=== PATIENT | male | born 1965 | race Caucasian/White ===

== ENCOUNTER 2016-08-29 20:04 | Inpatient (IN) | payer MEDICAID, OTHER ==
[2016-08-29 20:05] VITALS: BMI 25.8
--- NOTE | 2016-08-29 20:33 | ED PDOC ---
Arrival/HPI - General Chief Complaint: GI Problem Time Seen by Provider: 08/29/16 20:06 Historian: Patient - History of Present Illness Narrative History of Present Illness (Text): 08/29/16 20:32 Lenard Barakat is a 51 year old male smoker, whose past medical history includes COPD, who presents to the ED complaining of hematemesis. Patient states he has been vomiting dark red blood tonight with associated left sided abdominal pain and dark stools. Patient states he drinks alcohol regularly. Patient denies any chest pain, shortness of breath, diarrhea, urinary symptoms, back pain, neck pain, headache, dizziness, or any other complaints. Symptom Onset: Gradual Symptom Course: Unchanged Activities at Onset: Rest, Light Context: Home Past Medical History - Provider Review Nursing Documentation Reviewed: Yes - Infectious Disease Hx of Infectious Diseases: None - Cardiac Hx Cardiac Disorders: No - Pulmonary Hx Pneumonia: Yes - Neurological Hx Neurological Disorder: No - HEENT Hx HEENT Disorder: No - Renal Hx Renal Disorder: No - Endocrine/Metabolic Hx Endocrine Disorders: No - Hematological/Oncological Hx Blood Disorders: No - Integumentary Hx Dermatological Disorder: No - Musculoskeletal/Rheumatological Hx Gout: Yes - Gastrointestinal Hx Gastrointestinal Disorders: No - Genitourinary/Gynecological Hx Genitourinary Disorders: No - Psychiatric Hx Psychophysiologic Disorder: No Hx Substance Use: No - Surgical History Other/Comment: LUNG BX - Anesthesia Hx Anesthesia: No Family/Social History - Physician Review Nursing Documentation Reviewed: Yes Family/Social History: No Known Family HX Smoking Status: Light Smoker < 10 Cigarettes Daily Hx Alcohol Use: Yes Frequency of alcohol use: Daily Hx Substance Use: No Allergies/Home Meds Allergies/Adverse Reactions: Allergies No Known Allergies Allergy (Verified 08/29/16 20:21) Home Medications: Home Meds Medication Instructions Recorded Confirmed No Known Home Med 08/29/16 08/29/16 Review of Systems - Physician Review All systems were reviewed & negative as marked: Yes - Review of Systems Constitutional: Normal. absent: Fevers Eyes: Normal ENT: Normal Respiratory: Normal. absent: SOB, Cough Cardiovascular: Normal. absent: Chest Pain Gastrointestinal: Abdominal Pain, Hematemesis, Other (+dark stools) Genitourinary Male: Normal. absent: Dysuria, Frequency, Hematuria Musculoskeletal: Normal. absent: Back Pain, Neck Pain Skin: Normal. absent: Rash Neurological: Normal. absent: Headache, Dizziness Endocrine: Normal Hemo/Lymphatic: Normal Psychiatric: Normal Physical Exam Vital Signs Reviewed: Yes Vital Signs Temp Pulse Resp BP Pulse Ox 08/30/16 00:16 75 18 102/64 97 08/29/16 22:00 80 18 93/60 L 95 08/29/16 20:32 98.8 F 95 H 17 119/65 98 Temperature: Afebrile Blood Pressure: Normal Pulse: Regular Respiratory Rate: Normal Appearance: Positive for: Well-Appearing, Non-Toxic, Comfortable Pain Distress: None Mental Status: Positive for: Alert and Oriented X 3 - Systems Exam Head: Present: Atraumatic, Normocephalic Pupils: Present: PERRL Extroacular Muscles: Present: EOMI Conjunctiva: Present: Normal Mouth: Present: Moist Mucous Membranes Neck: Present: Normal Range of Motion Respiratory/Chest: Present: Clear to Auscultation, Good Air Exchange. No: Respiratory Distress, Accessory Muscle Use Cardiovascular: Present: Regular Rate and Rhythm, Normal S1, S2. No: Murmurs Abdomen: Present: Tenderness (LUQ tenderness), Normal Bowel Sounds. No: Distention, Peritoneal Signs Upper Extremity: Present: Normal Inspection. No: Cyanosis, Edema Lower Extremity: Present: Normal Inspection. No: Edema Neurological: Present: GCS=15, CN II-XII Intact, Speech Normal Skin: Present: Warm, Dry, Normal Color. No: Rashes Psychiatric: Present: Alert, Oriented x 3, Normal Insight, Normal Concentration Medical Decision Making ED Course and Treatment: 08/29/16 20:32 Impression: 51 year old male complaining of dark red hematemesis, dark stools, and left- sided abdominal pain tonight. Differential Diagnosis include but are not limited to: GI bleed Plan: -- EKG -- Chest X-ray -- Labs, cardiac enzymes, lipase, amylase, blood type and screen -- Urinalysis -- IV fluids -- Zofran -- Pepcid -- Protonix -- Reassess and disposition Prior Visits: Notes and results from previous visits were reviewed. On 07/03/2016, pt was seen in the ED for dry cough and chest discomfort. Pt was admitted to the hospital for further evaluation. Progress Notes: 08/29/16 21:07 Reviewed EKG, NSR at [address]-segment elevations or depressions, no T-wave inversions, normal intervals. 08/29/16 21:23 Reviewed radiology, Chest X-ray shows no active disease. 08/29/16 23:44 Case discussed with durable medical equipment repairer supervisor front, who is aware and agrees with plan. House doctor notified. 08/29/16 23:[address] Matos, who is aware and agrees with plan. Accepts pt in to hospitalist service. Pt will go to [facility] observation for GI hemorrhage. Pt is no acute distress. Discussed results and hospital observation plan with pt , who is aware and verbalizes understanding. 08/30/16 05:05 - Lab Interpretations Narrative Lab Interpretation (Text): 08/29/16 20:32 Lab Results: 08/29/16 21:06 08/29/16 21:06 Lab Results 08/29/16 23:25: Blood Type Confirm O POSITIVE 08/29/16 21:28: Urine Color Straw, Urine Appearance Clear, Urine pH 6.0, Ur Specific [place] <= 1.005, Urine Protein Negative, Urine Glucose (UA) Negative, Urine Ketones Negative, Urine Blood Negative, Urine Nitrate Negative, Urine Bilirubin Negative, Urine Urobilinogen 0.2, Ur Leukocyte Esterase Negative 08/29/16 21:06: WBC 5.5 D, RBC 3.88, Hgb 12.8 L, Hct 35.8 L, MCV 92.3, MCH 33.0 , MCHC 35.8, RDW 16.9 H, Plt Count 242, MPV 8.9, Gran % 35.0 L, Lymph % (Auto) 54.9 H, [place] % (Auto) 6.9 H, Eos % (Auto) 2.7, Baso % (Auto) 0.5, Gran # 1.94, Lymph # 3.0, [place] # 0.4, Eos # 0.2, Baso # 0.03, PT 11.1, INR 1.03, APTT 29.5, Sodium 142, Potassium 3.7, Chloride 103, Carbon Dioxide 24, Anion Gap 19, BUN 14 , Creatinine 0.8, Est GFR ( Amer) > 60, Est GFR (Non-Af Amer) > 60, Random Glucose 98, Calcium 9.1, Total Bilirubin 0.5, AST 32, ALT 18, Alkaline Phosphatase 69, Lactate Dehydrogenase 400, Total Creatine Kinase 184, Troponin I 0.01, Total Protein 7.8, Albumin 4.4, Globulin 3.5, Albumin/Globulin Ratio 1.3 , Amylase 88, Lipase 238, Blood Type O POSITIVE, Antibody Screen Negative, BBK History Checked No verified bt I have reviewed the lab results: Yes - RAD Interpretation Narrative RAD Interpretations (Text): Chest X-ray shows no active disease. Radiology Orders: 08/29/16 20:44 CHEST PORTABLE [RAD] Stat [place] Operator: ED Physician - EKG Interpretation EKG Interpretation (Text): EKG: Ordered, reviewed, and independently interpreted the EKG. Rate : 92 BPM Rhythm : NSR Interpretation : No ST-segment elevations or depressions, no T-wave inversions, normal intervals. Comparison : No acute change from previous EKG on 07/03/2016. Interpreted by ED Physician: Yes Type: 12 lead EKG - Medication Orders Current Medication Orders: Albuterol/Ipratropium (Duoneb 3 Mg/0.5 Mg (3 Ml) Ud) 3 ml IH Q6 PRN PRN Reason: Shortness of Breath Guaifenesin (Robitussin) 100 mg PO Q4H PRN PRN Reason: Cough Sodium Chloride (Sodium Chloride 0.9%) 1,000 mls @ 100 mls/hr IV .Q10H DEV Ondansetron HCl (Zofran Inj) 4 mg IVP Q4 PRN PRN Reason: Nausea/Vomiting Pantoprazole Sodium (Protonix Inj) 40 mg IVP BID DEV Discontinued Medications Famotidine (Pepcid) 20 mg IVP STAT STA Stop: 08/29/16 20:45 Last Admin: 08/29/16 21:05 Dose: 20 MG IVP Administration Document 08/29/16 21:05 (Rec: 08/29/16 21:10 [id number] Charges for Administration # of IVP Administrations 1 Sodium Chloride (Sodium Chloride 0.9%) 500 mls @ 1,000 mls/hr IV .Q30M STA Stop: 08/29/16 21:13 Last Admin: 08/29/16 21:05 Dose: 1,000 MLS/HR eMAR Start Stop Document 08/29/16 21:05 (Rec: 08/29/16 21:10 [id number] Intravenous Solution Start Date 08/29/16 Start Time 21:05 End Date 08/29/16 Ondansetron HCl (Zofran Inj) 4 mg IVP STAT STA Stop: 08/29/16 20:45 Last Admin: 08/29/16 21:05 Dose: 4 MG IVP Administration Document 08/29/16 21:05 SB (Rec: 08/29/16 21:10 SB [id number]) Charges for Administration # of IVP Administrations 1 Pantoprazole Sodium (Protonix Inj) 40 mg IVP ONCE STA Stop: 08/29/16 20:48 Last Admin: 08/29/16 21:05 Dose: 40 MG IVP Administration Document 08/29/16 21:05 SB (Rec: 08/29/16 21:11 SB [id number]) Charges for Administration # of IVP Administrations 1 - Scribe Statement The provider has reviewed the documentation as recorded by the Jonnie Kelley Provider Attestation: All medical record entries made by the Philippeibgary were at my direction and personally dictated by me. I have reviewed the chart and agree that the record accurately reflects my personal performance of the history, physical exam, medical decision making, and the department course for this patient. I have also personally directed, reviewed, and agree with the discharge instructions and disposition. Disposition/Present on Arrival - Present on Arrival Any Indicators Present on Arrival: No History of DVT/PE: No History of Uncontrolled Diabetes: No Urinary Catheter: No History of Decub. Ulcer: No History Surgical Site Infection Following: None - Disposition Have Diagnosis and Disposition been Completed?: Yes Diagnosis: Gastrointestinal bleeding Disposition: HOSPITALIZED Disposition Time: 23:45 Condition: FAIR
[2016-08-29] MEDS ORDERED: Sodium Chloride 0.9% 500 ML IV STA (20:44)
[2016-08-29 21:15] LABS: ADD MANUAL DIFF? NO
[2016-08-29 21:24] LABS: BASO # 0.03 K/mm3 (0.0-2.0); BASO % 0.5 % (0.0-3.0); EOS # 0.2 (0.0-0.7); EOS % 2.7 % (1.5-5.0); GRAN # 1.94 (1.4-6.5); HEMATOCRIT 35.8 % (42.0-52.0); LYMPH % 54.9 % (22.0-35.0); MEAN CELL VOLUME 92.3 fL (80.0-105.0); MEAN CORPUSCULAR HGB CONC 35.8 g/dl (31.0-37.0); MEAN PLATELET VOLUME 8.9 fl (7.0-11.0); MONO # 0.4 (0.1-0.6); MONO % 6.9 % (1.0-6.0); PLATELET COUNT 242 10^3/uL (120.0-450.0); RED CELL DISTRIBUTION WIDTH 16.9 % (11.5-14.5); WHITE BLOOD COUNT 5.5 10^3/ul (4.5-11.0)
[2016-08-29 21:30] LABS: ALB/GLOB RATIO 1.3 (1.1-1.8); ALKALINE PHOSPHATASE 69 U/L (38-133); ALT/SGPT 18 U/L (7-56); AMYLASE 88 U/L (35-125); AST/SGOT 32 U/L (15-59); BILIRUBIN,TOTAL 0.5 mg/dL (0.2-1.3); BLOOD UREA NITROGEN 14 mg/dL (7-21); CALCIUM 9.1 mg/dL (8.4-10.5); CARBON DIOXIDE 24 mmol/L (21-33); CHLORIDE 103 mmol/L (98-107); GFR AFRICAN-AMERICAN > 60; GLUCOSE,RANDOM 98 mg/dL (70-110); INR 1.03 (0.93-1.08); LIPASE 238 U/L (23-300); PARTIAL THROMBOPLASTIN TIME 29.5 Seconds (23.7-30.8); POTASSIUM 3.7 mmol/L (3.6-5.0); SODIUM 142 mmol/L (132-148); TOTAL PROTEIN 7.8 g/dL (5.8-8.3)
[2016-08-29 22:05] LABS: URINE BILIRUBIN NEGATIVE (NEGATIVE); URINE BLOOD NEGATIVE (NEGATIVE); URINE GLUCOSE (UA) NEGATIVE (NEGATIVE); URINE KETONE NEGATIVE (NEGATIVE); URINE LEUKOCYTE ESTERASE NEGATIVE Leu/uL (NEGATIVE); URINE PROTEIN NEGATIVE mg/dL (<30 mg/dL); URINE UROBILINOGEN 0.2 E.U./dL (<1 E.U./dL)
[2016-08-29 22:08] LABS: URINE APPEARANCE CLEAR (CLEAR); URINE COLOR STRAW (YELLOW)
[2016-08-29 22:47] LABS: TROPONIN I 0.01 ng/mL
[2016-08-30] MEDS ORDERED: guaiFENesin 100 mg/5 ml Syrup UD PO PRN (00:29)
[2016-08-30] MEDS ORDERED: Albuterol-Ipratrop 3 mg / 0.5 (3 ml) UD IH PRN (00:29)
--- NOTE | 2016-08-30 00:38 | CP.PCM.HP ---
<DebraJose samuelsolas - Last Filed: 08/30/16 02:23> History of Present Illness - History of Present Illness History of Present Illness: This is a 51 yo male with past medical hx of pneumonia and questionable cavitary lesion on chest ct presenting with hematemesis. Pt is homeless and is very poor historian. Pt was at [facility] earlier in the evening, around 9 PM. Pt had 1 episode of blood vomit which he says was dark red in color. He could not quantify how much he actually vomited. About an hour later, he had a second episode. He says this has never happened before. He approached police officers at the [facility] who called him an ambulance. He admits to a current "woozy" feeling otherwise has no complaints. No recent travel, no sick contacts. Denies fevers, chills, diarrhea. He notes he had 1 dark stool day prior. He denies drinking throughout the day, only says he had 1 cup of beer. Denies cough, chest pain, sob. Denies palpitations. Denies any drug use. PMH: Pneumonia, questionable cavitary lesion on chest ct PSH: CT guided lung biopsy Allergies: NKDA FH: Denies Home meds: none Social hx: Smokes 4 cigs/day. Drinks rarely. Denies drug use. Homeless since October, sleeps where he can. Has not been in a long term. Present on Admission - Present on Admission Any Indicators Present on Admission: No History of DVT/PE: No History of Uncontrolled Diabetes: No Urinary Catheter: No Decubitus Ulcer Present: No Review of Systems - Review of Systems All systems: reviewed and no additional remarkable complaints except Review of Systems: Negative except as stated in HPI. Past Patient History - Infectious Disease Hx of Infectious Diseases: None - Tetanus Immunizations Tetanus Immunization: Unknown - Past Medical History & Family History Past Medical History?: Yes Past Family History: Reviewed and not pertinent - Past Social History Smoking Status: Light Smoker < 10 Cigarettes Daily Chewing Tobacco Use: No Cigar Use: No Alcohol: Occasional Drugs: Denies Home Situation {Lives}: Homeless Domestic Violence: Negative - CARDIAC Hx Cardiac Disorders: No - PULMONARY Hx Pneumonia: Yes - NEUROLOGICAL Hx Neurological Disorder: No - HEENT Hx HEENT Problems: No - RENAL Hx Chronic Kidney Disease: No - ENDOCRINE/METABOLIC Hx Endocrine Disorders: No - HEMATOLOGICAL/ONCOLOGICAL Hx Blood Disorders: No - INTEGUMENTARY Hx Dermatological Problems: No - MUSCULOSKELETAL/RHEUMATOLOGICAL Hx Gout: Yes - GASTROINTESTINAL Hx Gastrointestinal Disorders: No - GENITOURINARY/GYNECOLOGICAL Hx Genitourinary Disorders: No - PSYCHIATRIC Hx Psychophysiologic Disorder: No Hx Substance Use: No - SURGICAL HISTORY Other/Comment: LUNG BX - ANESTHESIA Hx Anesthesia: No Meds Allergies/Adverse Reactions: Allergies Allergy/AdvReac Type Severity Reaction Status Date / Time No Known Allergies Allergy Verified 08/29/16 20:21 Physical Exam - Constitutional Appears: Non-toxic, No Acute Distress, Unkempt - Head Exam Head Exam: ATRAUMATIC, NORMAL INSPECTION, NORMOCEPHALIC - Eye Exam Eye Exam: EOMI - ENT Exam ENT Exam: Mucous Membranes Moist - Neck Exam Neck exam: Positive for: Normal Inspection - Respiratory Exam Respiratory Exam: Decreased Breath Sounds. absent: Accessory Muscle Use, Respiratory Distress - Cardiovascular Exam Cardiovascular Exam: REGULAR RHYTHM, +S1, +S2 - GI/Abdominal Exam GI & Abdominal Exam: Normal Bowel Sounds, Soft. absent: Tenderness - Extremities Exam Extremities exam: Negative for: tenderness - Back Exam Back exam: NORMAL INSPECTION - Neurological Exam Neurological exam: Alert, Oriented x3 - Psychiatric Exam Psychiatric exam: Normal Affect, Normal Mood - Skin Skin Exam: Dry, Intact, Normal Color, Warm Results - Vital Signs Recent Vital Signs: Last Vital Signs Temp 98.8 F 08/29/16 20:32 Pulse 75 08/30/16 00:16 Resp 18 08/30/16 00:16 BP 102/64 08/30/16 00:16 Pulse Ox 97 08/30/16 00:16 - Labs Result Diagrams: 08/29/16 21:06 08/29/16 21:06 Labs: Laboratory Results - last 24 hr 08/29/16 08/29/16 21:06 21:28 WBC 5.5 D RBC 3.88 Hgb 12.8 L Hct 35.8 L MCV 92.3 MCH 33.0 MCHC 35.8 RDW 16.9 H Plt Count 242 MPV 8.9 Gran % 35.0 L Lymph % (Auto) 54.9 H [place] % (Auto) 6.9 H Eos % (Auto) 2.7 Baso % (Auto) 0.5 Gran # 1.94 Lymph # 3.0 [place] # 0.4 Eos # 0.2 Baso # 0.03 PT 11.1 INR 1.03 APTT 29.5 Sodium 142 Potassium 3.7 Chloride 103 Carbon Dioxide 24 Anion Gap 19 BUN 14 Creatinine 0.8 Est GFR ( Amer) > 60 Est GFR (Non-Af Amer) > 60 Random Glucose 98 Calcium 9.1 Total Bilirubin 0.5 AST 32 ALT 18 Alkaline Phosphatase 69 Lactate Dehydrogenase 400 Total Creatine Kinase 184 Troponin I 0.01 Total Protein 7.8 Albumin 4.4 Globulin 3.5 Albumin/Globulin Ratio 1.3 Amylase 88 Lipase 238 Urine Color Straw Urine Appearance Clear Urine pH 6.0 Ur Specific [place] <= 1.005 Urine Protein Negative Urine Glucose (UA) Negative Urine Ketones Negative Urine Blood Negative Urine Nitrate Negative Urine Bilirubin Negative Urine Urobilinogen 0.2 Ur Leukocyte Esterase Negative Blood Type O POSITIVE Antibody Screen Negative BBK History Checked No verified bt Assessment & Plan - Assessment and Plan (Free Text) Assessment: This is a 51 yo male with past medical hx of pneumonia presenting with upper GI bleed and 2 episodes of hematemesis 1. Upper GI bleed -NPO -protonix BID -GI consult with Dr. Machuca. recs appreciated -NS 100 cc/hr -zofran prn -serial CBCs -pt is hemodynamically stable at this time -EKG shows NSR with no st elevations -CXR shows no active disease -bleeding precautions -Blatch[place] score of 3 2. Hx of COPD -duonebs prn -robitussin for cough 3. GI/DVT ppx -SCDs -protonix dw Dr. Matos <Denise Matos - Last Filed: 08/30/16 05:42> Results - Vital Signs Recent Vital Signs: Last Vital Signs Temp 98.8 F 08/29/16 20:32 Pulse 75 08/30/16 00:16 Resp 18 08/30/16 02:27 BP 102/64 08/30/16 00:16 Pulse Ox 97 08/30/16 00:16 - Labs Result Diagrams: 08/29/16 21:06 08/29/16 21:06 Attending/Attestation - Attestation I have personally seen and examined this patient.: Yes I have fully participated in the care of the patient.: Yes I have reviewed all pertinent clinical information: Yes Notes (Text): 08/30/16 05:41 Patient was seen by me when he was in the ER in bed # 6. Agree with history, physical examination, assessment and plan.
[2016-08-30 07:08] LABS: ADD MANUAL DIFF? NO
[2016-08-30 07:18] LABS: BASO # 0.03 K/mm3 (0.0-2.0); BASO % 0.6 % (0.0-3.0); EOS # 0.2 (0.0-0.7); EOS % 3.2 % (1.5-5.0); GRAN # 1.64 (1.4-6.5); GRAN % 35.2 % (50.0-68.0); HEMATOCRIT 35.8 % (42.0-52.0); LYMPH # 2.4 (1.2-3.4); LYMPH % 51.1 % (22.0-35.0); MEAN CORPUSCULAR HEMOGLOBIN 32.5 pg (25.0-35.0); MEAN CORPUSCULAR HGB CONC 34.9 g/dl (31.0-37.0); MEAN PLATELET VOLUME 8.4 fl (7.0-11.0); MONO # 0.5 (0.1-0.6); MONO % 9.9 % (1.0-6.0); PLATELET COUNT 212 10^3/uL (120.0-450.0); RED CELL DISTRIBUTION WIDTH 17.4 % (11.5-14.5); WHITE BLOOD COUNT 4.7 10^3/ul (4.5-11.0)
[2016-08-30 07:23] LABS: ALB/GLOB RATIO 1.1 (1.1-1.8); ALKALINE PHOSPHATASE 67 U/L (38-133); ALT/SGPT 19 U/L (7-56); AST/SGOT 29 U/L (15-59); BILIRUBIN,TOTAL 0.8 mg/dL (0.2-1.3); BLOOD UREA NITROGEN 14 mg/dL (7-21); CALCIUM 8.9 mg/dL (8.4-10.5); CARBON DIOXIDE 28 mmol/L (21-33); CHLORIDE 107 mmol/L (98-107); GFR AFRICAN-AMERICAN > 60; GLUCOSE,RANDOM 91 mg/dL (70-110); SODIUM 145 mmol/L (132-148); TOTAL PROTEIN 6.8 g/dL (5.8-8.3)
[2016-08-30 08:01] LABS: TROPONIN I 0.02 ng/mL
--- NOTE | 2016-08-30 09:15 | RAD ---
HISTORY: gi bleed COMPARISON: 07/10/2016 FINDINGS: LUNGS: Left upper lobe lung mass similar in size to previous study PLEURA: No significant pleural effusion identified, no pneumothorax apparent. CARDIOVASCULAR: Normal. OSSEOUS STRUCTURES: No significant abnormalities. VISUALIZED UPPER ABDOMEN: Normal. OTHER FINDINGS: None. IMPRESSION: No significant change in left upper lobe lung mass
[2016-08-30] MEDS: Sodium Chloride 0.9% 1,000 ML IV SCH ×3 (09:59→22:30)
--- NOTE | 2016-08-30 11:58 | CARD ---
APPROVED REPORT EKG Measurement Heart [id number] <Conclusion> Normal sinus rhythm Normal ECG
[2016-08-30 12:16] LABS: ADD MANUAL DIFF? NO
[2016-08-30 12:24] LABS: BASO # 0.04 K/mm3 (0.0-2.0); EOS # 0.2 (0.0-0.7); EOS % 3.8 % (1.5-5.0); GRAN # 1.44 (1.4-6.5); GRAN % 34.4 % (50.0-68.0); HEMATOCRIT 35.8 % (42.0-52.0); LYMPH # 2.1 (1.2-3.4); LYMPH % 51.2 % (22.0-35.0); MEAN CELL VOLUME 93.5 fL (80.0-105.0); MEAN CORPUSCULAR HEMOGLOBIN 32.6 pg (25.0-35.0); MEAN CORPUSCULAR HGB CONC 34.9 g/dl (31.0-37.0); MEAN PLATELET VOLUME 8.3 fl (7.0-11.0); MONO # 0.4 (0.1-0.6); MONO % 9.6 % (1.0-6.0); PLATELET COUNT 206 10^3/uL (120.0-450.0); RED CELL DISTRIBUTION WIDTH 17.3 % (11.5-14.5); WHITE BLOOD COUNT 4.2 10^3/ul (4.5-11.0)
--- NOTE | 2016-08-30 14:01 | CON ---
DATE: 08/30/2016 REQUESTING PHYSICIAN: Dr. Yue Anthony. REASON FOR CONSULTATION: I have been asked to see this 51-year-old male with a history of pneumonia, questionable cavitary lesion on chest CAT scan who is admitted to the hospital with 2 episodes of vo miting, one which was apparently bloody. This was associated with some lightheadedness. He denies a ny melena, abdominal pain, fevers or chills. His blood work in the hospital has been stable in the 1 2-1/2 gram range. His BUN is normal. He is hungry and asking for food. PAST MEDICAL HISTORY: Notable for a possible cavitary lesion on CAT scan, pneumonia. SOCIAL HISTORY: He is homeless. He smokes under half pack of cigarettes per day. Denies alcohol us e. FAMILY HISTORY: Noncontributory. REVIEW OF SYSTEMS: A 14-point review of systems is notable for nausea and hematemesis. PHYSICAL EXAMINATION: GENERAL: Young disheveled male lying in bed in no acute distress. VITAL SIGNS: Reveal temperature of 97.8, blood pressure 93/51, heart rate is 69. HEENT: Reveals sclerae to be white, conjunctivae pink. NECK: Supple. CHEST: Lungs are clear. HEART: Reveals regular rate and rhythm. ABDOMEN: Soft, nontender. EXTREMITIES: Show no edema. LABORATORY DATA: Reveal hemoglobin 12.5, stable. White blood cell count 4.7. Chemistries reveal no rmal electrolytes. IMPRESSION: A 51-year-old male admitted to the hospital with hematemesis. His hemoglobin has been s table. This is not a significant GI bleed, may be related to gastritis. RECOMMENDATIONS: 1. We will advance the patient's diet. 2. The patient can be followed up in the medical clinic to have an outpatient endoscopy arranged. Bright Machuca MD cc: 79 TT: 08/30/2016 14:00:33 Confirmation # [id number] Dictation # [id number]
[2016-08-30 16:19] LABS: ADD MANUAL DIFF? NO
[2016-08-30 16:30] LABS: BASO # 0.04 K/mm3 (0.0-2.0); EOS # 0.2 (0.0-0.7); EOS % 4.4 % (1.5-5.0); GRAN # 1.31 (1.4-6.5); GRAN % 32.2 % (50.0-68.0); HEMATOCRIT 35.2 % (42.0-52.0); LYMPH # 2.2 (1.2-3.4); LYMPH % 53.6 % (22.0-35.0); MEAN CELL VOLUME 93.9 fL (80.0-105.0); MEAN CORPUSCULAR HEMOGLOBIN 32.5 pg (25.0-35.0); MEAN CORPUSCULAR HGB CONC 34.7 g/dl (31.0-37.0); MEAN PLATELET VOLUME 8.9 fl (7.0-11.0); MONO # 0.4 (0.1-0.6); MONO % 8.8 % (1.0-6.0); PLATELET COUNT 222 10^3/uL (120.0-450.0); RED CELL DISTRIBUTION WIDTH 17.3 % (11.5-14.5); WHITE BLOOD COUNT 4.1 10^3/ul (4.5-11.0)
[2016-08-31] MEDS: Sodium Chloride 0.9% 1,000 ML IV SCH (06:52)
[2016-08-31 07:16] LABS: HEMATOCRIT 34.8 % (42.0-52.0); MEAN CELL VOLUME 93.3 fL (80.0-105.0); MEAN CORPUSCULAR HEMOGLOBIN 32.2 pg (25.0-35.0); MEAN CORPUSCULAR HGB CONC 34.5 g/dl (31.0-37.0); MEAN PLATELET VOLUME 8.6 fl (7.0-11.0); RED CELL DISTRIBUTION WIDTH 16.9 % (11.5-14.5); WHITE BLOOD COUNT 4.1 10^3/ul (4.5-11.0)
[2016-08-31 09:32] VITALS: BP 89/52; PULSE 56; RESP 17; TEMP 98.2; O2SAT 97
--- NOTE | 2016-08-31 11:28 | CP.PCM.DIS ---
<MalloyKennylew - Last Filed: 09/01/16 00:31> Provider - Provider Date of Admission: 08/30/16 09:00 Attending physician: Jose Miguel Anthony MD Primary care physician: Scott Profile Required Consults: GI: Dr. Machuca Time Spent in preparation of Discharge (in minutes): 40 Diagnosis - Discharge Diagnosis (1) COPD (chronic obstructive pulmonary disease) Status: Resolved (2) Mycetoma Status: Chronic (3) Tobacco abuse Status: Chronic (4) Alcohol abuse Status: Chronic Hospital Course - Lab Results Lab Results: Most Recent Lab Values WBC 4.1 10^3/ul (4.5-11.0) L 08/31/16 06:30 RBC 3.73 10^6/uL (3.5-6.1) 08/31/16 06:30 Hgb 12.0 gm/dL (14.0-18.0) L 08/31/16 06:30 Hct 34.8 % (42.0-52.0) L 08/31/16 06:30 MCV 93.3 fL (80.0-105.0) 08/31/16 06:30 MCH 32.2 pg (25.0-35.0) 08/31/16 06:30 MCHC 34.5 g/dl (31.0-37.0) 08/31/16 06:30 RDW 16.9 % (11.5-14.5) H 08/31/16 06:30 Plt Count 197 10^3/uL (120.0-450.0) 08/31/16 06:30 MPV 8.6 fl (7.0-11.0) 08/31/16 06:30 Gran % 32.2 % (50.0-68.0) L 08/30/16 15:45 Lymph % (Auto) 53.6 % (22.0-35.0) H 08/30/16 15:45 [place] % (Auto) 8.8 % (1.0-6.0) H 08/30/16 15:45 Eos % (Auto) 4.4 % (1.5-5.0) 08/30/16 15:45 Baso % (Auto) 1.0 % (0.0-3.0) 08/30/16 15:45 Gran # 1.31 (1.4-6.5) L 08/30/16 15:45 Lymph # 2.2 (1.2-3.4) 08/30/16 15:45 [place] # 0.4 (0.1-0.6) 08/30/16 15:45 Eos # 0.2 (0.0-0.7) 08/30/16 15:45 Baso # 0.04 K/mm3 (0.0-2.0) 08/30/16 15:45 PT 11.1 Seconds (9.9-11.8) 08/29/16 21:06 INR 1.03 (0.93-1.08) 08/29/16 21:06 APTT 29.5 Seconds (23.7-30.8) 08/29/16 21:06 Sodium 145 mmol/L (132-148) 08/30/16 06:50 Potassium 4.0 mmol/L (3.6-5.0) 08/30/16 06:50 Chloride 107 mmol/L (98-107) 08/30/16 06:50 Carbon Dioxide 28 mmol/L (21-33) 08/30/16 06:50 Anion Gap 14 (10-20) 08/30/16 06:50 BUN 14 mg/dL (7-21) 08/30/16 06:50 Creatinine 0.9 mg/dL (0.5-1.4) 08/30/16 06:50 Est GFR ( Amer) > 60 08/30/16 06:50 Est GFR (Non-Af Amer) > 60 08/30/16 06:50 Random Glucose 91 mg/dL (70-110) 08/30/16 06:50 Calcium 8.9 mg/dL (8.4-10.5) 08/30/16 06:50 Total Bilirubin 0.8 mg/dL (0.2-1.3) 08/30/16 06:50 AST 29 U/L (15-59) 08/30/16 06:50 ALT 19 U/L (7-56) 08/30/16 06:50 Alkaline Phosphatase 67 U/L (38-133) 08/30/16 06:50 Lactate Dehydrogenase 400 U/L (333-699) 08/29/16 21:06 Total Creatine Kinase 184 U/L (35-230) 08/29/16 21:06 Troponin I 0.02 ng/mL D 08/30/16 06:50 Total Protein 6.8 g/dL (5.8-8.3) 08/30/16 06:50 Albumin 3.6 g/dL (3.0-4.8) 08/30/16 06:50 Globulin 3.2 gm/dL 08/30/16 06:50 Albumin/Globulin Ratio 1.1 (1.1-1.8) 08/30/16 06:50 Amylase 88 U/L (35-125) 08/29/16 21:06 Lipase 238 U/L (23-300) 08/29/16 21:06 Urine Color Straw (YELLOW) 08/29/16 21:28 Urine Appearance Clear (CLEAR) 08/29/16 21:28 Urine pH 6.0 (4.7-8.0) 08/29/16 21:28 Ur Specific [place] <= 1.005 (1.005-1.035) 08/29/16 21:28 Urine Protein Negative mg/dL (<30 mg/dL) 08/29/16 21:28 Urine Glucose (UA) Negative mg/dL (NEGATIVE) 08/29/16 21:28 Urine Ketones Negative mg/dL (NEGATIVE) 08/29/16 21:28 Urine Blood Negative (NEGATIVE) 08/29/16 21:28 Urine Nitrate Negative (NEGATIVE) 08/29/16 21:28 Urine Bilirubin Negative (NEGATIVE) 08/29/16 21:28 Urine Urobilinogen 0.2 E.U./dL (<1 E.U./dL) 08/29/16 21:28 Ur Leukocyte Esterase Negative Adarsh/uL (NEGATIVE) 08/29/16 21:28 Alcohol, Quantitative < 10 mg/dL (0-10) 08/30/16 07:00 Blood Type O POSITIVE 08/29/16 21:06 Blood Type Confirm O POSITIVE 08/29/16 23:25 Antibody Screen Negative 08/29/16 21:06 BBK History Checked No verified bt 08/29/16 21:06 - Hospital Course Hospital Course: 51 year old male with past medical hx of pneumonia and questionable cavitary lesion on chest ct presenting with hematemesis. Patient is homeless and is very poor historian. Patient was at [facility] earlier in the evening, around 9 PM. Patient had 1 episode of vomiting which he says was dark red in color. He could not quantify how much he actually vomited. About an hour later, he had a second episode. He says this has never happened before. He approached police officers at the [facility] who called him an ambulance. He admits to a current "woozy" feeling otherwise has no complaints. No recent travel, no sick contacts. Denies fevers, chills, diarrhea. He notes he had 1 dark stool day prior. He admits to drinking 1 cup of beer yesterday. Denies cough, chest pain, sob. Denies palpitations. Denies any drug use. In the ED patient's CXR showed no active disease. No ST-segment elevations or depressions, no T-wave inversions , normal intervals. Upon admission, patient was started on protonix, IVF, and GI was consulted. Patient's hematemesis resolved. Patient was uncooperative with treatments and blood works because he does not want to be bothered when he is sleeping. Patient is hemodynamically stable. GI recommended protonix and outpatient endoscopy. Patient tolerated regular diet well. piece dye worker was consulted for patient's homeless situation. The discharge plan and follow ups were extensively discussed with the patient who verbalized with complete understanding. At this time, after discussion of all issues, the patient was deemed medically fit for discharge. - Date & Time of H&P Date of H&P: 08/30/16 Time of H&P: 00:37 Discharge Exam - Head Exam Head Exam: ATRAUMATIC, NORMAL INSPECTION, NORMOCEPHALIC - Eye Exam Eye Exam: Normal appearance Pupil Exam: PERRL - ENT Exam ENT Exam: Mucous Membranes Moist - Neck Exam Neck exam: Normal Inspection - Respiratory Exam Respiratory Exam: Clear to PA & Lateral, NORMAL BREATHING PATTERN, UNREMARKABLE. absent: Wheezes, Respiratory Distress, Stridor - Cardiovascular Exam Cardiovascular Exam: REGULAR RHYTHM, RRR, +S1, +S2 - GI/Abdominal Exam GI & Abdominal Exam: Normal Bowel Sounds, Soft, Unremarkable. absent: Bruit, Rigid - Extremities Exam Extremities exam: normal inspection, pedal pulses present - Back Exam Back exam: NORMAL INSPECTION - Neurological Exam Neurological exam: Alert, Oriented x3 - Psychiatric Exam Psychiatric exam: Normal Affect, Normal Mood - Skin Skin Exam: Dry, Intact, Normal Color, Warm Discharge Plan - Discharge Medications Prescriptions: Pantoprazole [Protonix] 40 mg PO DAILY #30 ect - Follow Up Plan Condition: FAIR Disposition: HOME/ ROUTINE Instructions: Gastrointestinal Bleeding (DC) Additional Instructions: Patient was instructed to follow up with PMD at [facility] clinic ([phone]) Patient was instructed to schedule a colonoscopy and endoscopy after PMD appointment Avoid aspirin, NSAIDs and alcohol Instructed patient to take medications as prescribed Go to the nearest ED if symptoms return or worsen Referrals: [facility], [Non-Staff] - <Abrahan Chambers MD - Last Filed: 09/01/16 12:20> Provider - Provider Date of Admission: 08/30/16 16:01 Attending physician: Abrahan Chambers MD Primary care physician: NO PRIMARY CARE PROVIDER Hospital Course - Lab Results Lab Results: Most Recent Lab Values WBC 4.1 10^3/ul (4.5-11.0) L 08/31/16 06:30 RBC 3.73 10^6/uL (3.5-6.1) 08/31/16 06:30 Hgb 12.0 gm/dL (14.0-18.0) L 08/31/16 06:30 Hct 34.8 % (42.0-52.0) L 08/31/16 06:30 MCV 93.3 fL (80.0-105.0) 08/31/16 06:30 MCH 32.2 pg (25.0-35.0) 08/31/16 06:30 MCHC 34.5 g/dl (31.0-37.0) 08/31/16 06:30 RDW 16.9 % (11.5-14.5) H 08/31/16 06:30 Plt Count 197 10^3/uL (120.0-450.0) 08/31/16 06:30 MPV 8.6 fl (7.0-11.0) 08/31/16 06:30 Gran % 32.2 % (50.0-68.0) L 08/30/16 15:45 Lymph % (Auto) 53.6 % (22.0-35.0) H 08/30/16 15:45 [place] % (Auto) 8.8 % (1.0-6.0) H 08/30/16 15:45 Eos % (Auto) 4.4 % (1.5-5.0) 08/30/16 15:45 Baso % (Auto) 1.0 % (0.0-3.0) 08/30/16 15:45 Gran # 1.31 (1.4-6.5) L 08/30/16 15:45 Lymph # 2.2 (1.2-3.4) 08/30/16 15:45 [place] # 0.4 (0.1-0.6) 08/30/16 15:45 Eos # 0.2 (0.0-0.7) 08/30/16 15:45 Baso # 0.04 K/mm3 (0.0-2.0) 08/30/16 15:45 PT 11.1 Seconds (9.9-11.8) 08/29/16 21:06 INR 1.03 (0.93-1.08) 08/29/16 21:06 APTT 29.5 Seconds (23.7-30.8) 08/29/16 21:06 Sodium 145 mmol/L (132-148) 08/30/16 06:50 Potassium 4.0 mmol/L (3.6-5.0) 08/30/16 06:50 Chloride 107 mmol/L (98-107) 08/30/16 06:50 Carbon Dioxide 28 mmol/L (21-33) 08/30/16 06:50 Anion Gap 14 (10-20) 08/30/16 06:50 BUN 14 mg/dL (7-21) 08/30/16 06:50 Creatinine 0.9 mg/dL (0.5-1.4) 08/30/16 06:50 Est GFR ( Amer) > 60 08/30/16 06:50 Est GFR (Non-Af Amer) > 60 08/30/16 06:50 Random Glucose 91 mg/dL (70-110) 08/30/16 06:50 Calcium 8.9 mg/dL (8.4-10.5) 08/30/16 06:50 Total Bilirubin 0.8 mg/dL (0.2-1.3) 08/30/16 06:50 AST 29 U/L (15-59) 08/30/16 06:50 ALT 19 U/L (7-56) 08/30/16 06:50 Alkaline Phosphatase 67 U/L (38-133) 08/30/16 06:50 Lactate Dehydrogenase 400 U/L (333-699) 08/29/16 21:06 Total Creatine Kinase 184 U/L (35-230) 08/29/16 21:06 Troponin I 0.02 ng/mL D 08/30/16 06:50 Total Protein 6.8 g/dL (5.8-8.3) 08/30/16 06:50 Albumin 3.6 g/dL (3.0-4.8) 08/30/16 06:50 Globulin 3.2 gm/dL 08/30/16 06:50 Albumin/Globulin Ratio 1.1 (1.1-1.8) 08/30/16 06:50 Amylase 88 U/L (35-125) 08/29/16 21:06 Lipase 238 U/L (23-300) 08/29/16 21:06 Urine Color Straw (YELLOW) 08/29/16 21:28 Urine Appearance Clear (CLEAR) 08/29/16 21:28 Urine pH 6.0 (4.7-8.0) 08/29/16 21:28 Ur Specific [place] <= 1.005 (1.005-1.035) 08/29/16 21:28 Urine Protein Negative mg/dL (<30 mg/dL) 08/29/16 21:28 Urine Glucose (UA) Negative mg/dL (NEGATIVE) 08/29/16 21:28 Urine Ketones Negative mg/dL (NEGATIVE) 08/29/16 21:28 Urine Blood Negative (NEGATIVE) 08/29/16 21:28 Urine Nitrate Negative (NEGATIVE) 08/29/16 21:28 Urine Bilirubin Negative (NEGATIVE) 08/29/16 21:28 Urine Urobilinogen 0.2 E.U./dL (<1 E.U./dL) 08/29/16 21:28 Ur Leukocyte Esterase Negative Adarsh/uL (NEGATIVE) 08/29/16 21:28 Alcohol, Quantitative < 10 mg/dL (0-10) 08/30/16 07:00 Blood Type O POSITIVE 08/29/16 21:06 Blood Type Confirm O POSITIVE 08/29/16 23:25 Antibody Screen Negative 08/29/16 21:06 BBK History Checked No verified bt 08/29/16 21:06 Attending/Attestation - Attestation I have personally seen and examined this patient.: Yes I have fully participated in the care of the patient.: Yes I have reviewed all pertinent clinical information, including history, physical exam and plan: Yes Notes (Text): Patient was seen and examined with medical front desk specialist .Agreed with resident assessment and plan. Patient did not has any hemetemesis or melena during his stay in the hospital.His hemoglobin remain stable.He was evaluated by GI, no inpatient work up was recommended.He was started on PPI.He was advised not to take NSAID / Aspirin.He is tolerating diet at the time of discharge.He was also advised not to drink alcohol. Patient is ambulatory at the time of discharge. He will follow up with [facility] clinic. Prognosis is poor due to non compliance. Management plan was discussed in detail with patient Education was provided.
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
== END 2016-08-31 15:37 | disposition home or self-care (01) | DRG 378 ==
LOC: ED 20:04 → UNDOADMOB 23:52 → ERH 23:52 → 3RSO 08-30 01:06 → INTOOBSV 08-30 09:00 → OBSVTOIN 08-30 09:00 → 3RSO 08-30 16:01 → ERH 08-30 16:01 → OBSVTOIN 08-30 16:01 → UNDODISIN 08-31 15:37
PROVIDERS: ADMIT Hospitalist; ATTEND Internal Medicine
DX: K92.0 Hematemesis (principal); B47.9 Mycetoma, unspecified; K29.70 Gastritis, unspecified, without bleeding; J44.9 Chronic obstructive pulmonary disease, unspecified; F17.210 Nicotine dependence, cigarettes, uncomplicated; F10.10 Alcohol abuse, uncomplicated; Y90.0 Blood alcohol level of less than 20 mg/100 ml; Z87.01 Personal history of pneumonia (recurrent); Z59.0 Homelessness

== ENCOUNTER 2016-09-10 22:18 | Observation (INO) | payer MEDICAID, OTHER ==
[2016-09-10 22:37] VITALS: BMI 25.7
[2016-09-10 22:40] VITALS: RESP 16; TEMP 97.8
[2016-09-10] MEDS ORDERED: Sodium Chloride 0.9% 1,000 ML IV STA (22:50)
--- NOTE | 2016-09-10 23:07 | ED PDOC ---
Arrival/HPI - General Chief Complaint: Alcohol Ingestion Time Seen by Provider: 09/10/16 22:19 Historian: Patient - History of Present Illness Narrative History of Present Illness (Text): 09/10/16 23:05 Lenard Barakat, a 51 year old male, who is homeless, presents to the emergency department because of alcohol abuse. Patient reports nausea after drinking, but denies any vomiting, fever, shortness of breath, or any other complaints at this time. Patient is mal odorous and shows poor hygiene. upon inital assessment , pt sleeping in nad. later pt observed eating a sandwich in nad. Time/Duration: Prior to Arrival Symptom Course: Unchanged Activities at Onset: Rest Modifying Factors (Text): none Context: Home Associated Symptoms (Text): nausea after drinking Past Medical History - Provider Review Nursing Documentation Reviewed: Yes - Infectious Disease Hx of Infectious Diseases: None - Tetanus Immunization Tetanus Immunization: Unknown - Cardiac Hx Cardiac Disorders: No - Pulmonary Hx Pneumonia: Yes - Neurological Hx Neurological Disorder: No - HEENT Hx HEENT Disorder: No - Renal Hx Renal Disorder: No - Endocrine/Metabolic Hx Endocrine Disorders: No - Hematological/Oncological Hx Blood Disorders: No - Integumentary Hx Dermatological Disorder: No - Musculoskeletal/Rheumatological Hx Gout: Yes - Gastrointestinal Hx Gastrointestinal Ulcer: Yes - Genitourinary/Gynecological Hx Genitourinary Disorders: No - Psychiatric Hx Psychophysiologic Disorder: No Hx Substance Use: No - Surgical History Other/Comment: LUNG BX - Anesthesia Hx Anesthesia: No Family/Social History - Physician Review Nursing Documentation Reviewed: Yes Family/Social History: No Known Family HX Smoking Status: Light Smoker < 10 Cigarettes Daily Hx Alcohol Use: Yes Frequency of alcohol use: Socially Hx Substance Use: No Allergies/Home Meds Allergies/Adverse Reactions: Allergies No Known Allergies Allergy (Verified 09/10/16 22:37) Review of Systems - Physician Review All systems were reviewed & negative as marked: Yes - Review of Systems Constitutional: absent: Fevers Respiratory: absent: SOB Gastrointestinal: Nausea. absent: Vomiting Physical Exam Vital Signs Reviewed: Yes Vital Signs Temp Pulse Resp BP Pulse Ox 09/11/16 05:20 75 16 98/61 L 94 L 09/11/16 04:27 74 16 110/59 L 96 09/11/16 03:36 86 16 96/51 L 95 09/11/16 02:31 77 16 91/51 L 95 09/11/16 01:39 83 16 105/75 96 09/11/16 01:00 86 16 97 09/10/16 22:37 97.8 F 81 16 104/73 99 Temperature: Afebrile Blood Pressure: Normal Pulse: Regular Respiratory Rate: Normal Appearance: Positive for: Well-Appearing, Non-Toxic, Comfortable Pain Distress: None Mental Status: Positive for: Alert and Oriented X 3 - Systems Exam Head: Present: Atraumatic, Normocephalic Pupils: Present: PERRL Extroacular Muscles: Present: EOMI Conjunctiva: Present: Normal Mouth: Present: Moist Mucous Membranes Neck: Present: Normal Range of Motion Respiratory/Chest: Present: Clear to Auscultation, Good Air Exchange. No: Respiratory Distress, Accessory Muscle Use Cardiovascular: Present: Regular Rate and Rhythm, Normal S1, S2. No: Murmurs Abdomen: Present: Normal Bowel Sounds. No: Tenderness, Distention, Peritoneal Signs Upper Extremity: Present: Normal Inspection. No: Cyanosis, Edema Lower Extremity: Present: Normal Inspection. No: Edema Neurological: Present: GCS=15, CN II-XII Intact, Speech Normal Skin: Present: Warm, Dry, Normal Color. No: Rashes Psychiatric: Present: Alert, Oriented x 3, Normal Insight, Normal Concentration Medical Decision Making ED Course and Treatment: 09/10/16 23:10 Impression: 51 year old male homeless and alcohol abuse. Differential Diagnosis include but are not limited to: Plan: -- Reassess and disposition Progress Notes: Patient is homeless and intoxicated. Patient shows poor hygiene. abd soft. pt taking po in er. vitals stable. will continue to reassess 09/11/16 00:18 Patient is sleeping comfortably. Patient is in no acute distress. 09/11/16 03:04 Patient is sleeping comfortably. Patient is in no acute distress. 09/11/16 05:31 Patient is awake, alert, ambulatory, steady gait. Patient is stable for discharge. - Scribe Statement The provider has reviewed the documentation as recorded by the Philippeibgary Mckeon All medical record entries made by the Scribe were at my direction and personally dictated by me. I have reviewed the chart and agree that the record accurately reflects my personal performance of the history, physical exam, medical decision making, and the department course for this patient. I have also personally directed, reviewed, and agree with the discharge instructions and disposition. Disposition/Present on Arrival - Present on Arrival Any Indicators Present on Arrival: No History of DVT/PE: No History of Uncontrolled Diabetes: No Urinary Catheter: No History of Decub. Ulcer: No History Surgical Site Infection Following: None - Disposition Have Diagnosis and Disposition been Completed?: Yes Diagnosis: Alcohol abuse Disposition: HOME/ ROUTINE Disposition Time: 06:30 Patient Problems: Current Active Problems Problem Status Diagnosed Gastrointestinal bleeding Acute Condition: STABLE
[2016-09-11 05:22] VITALS: BP 98/61; PULSE 75; O2SAT 94
== END 2016-09-11 05:28 | disposition home or self-care (01) ==
LOC: ED 22:18 → EROBSV 23:12
PROVIDERS: ADMIT Student in an Organized Health Care Education/Training Program; ATTEND Student in an Organized Health Care Education/Training Program
DX: F10.10 Alcohol abuse, uncomplicated (principal); Z59.0 Homelessness
CPT/HCPCS: 99285; G0378

== ENCOUNTER 2016-09-26 20:22 | Emergency (ER) | payer MEDICAID, OTHER ==
[2016-09-26 20:41] VITALS: O2SAT 99; BMI 25.1
[2016-09-26] MEDS ORDERED: Morphine 4 mg/ml ISec IM STA (21:58)
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
[2016-09-26 23:48] VITALS: BP 132/89; TEMP 98.6
[2016-09-27 00:07] VITALS: PULSE 88; RESP 18
== END 2016-09-27 00:07 | disposition short-term general hospital (02) ==
LOC: ED 20:22
DX: S02.601A Fracture of unspecified part of body of right mandible, initial encounter for closed fracture (principal); Y04.0XXA Assault by unarmed brawl or fight, initial encounter; F17.210 Nicotine dependence, cigarettes, uncomplicated
CPT/HCPCS: 70486; 96372; 99284; J2270

== ENCOUNTER 2017-01-19 22:59 | Emergency (ER) | payer SELFPAY ==
[2017-01-19 22:59] VITALS: BMI 25.1
[2017-01-19 23:21] VITALS: BP 103/67; PULSE 80; RESP 18; TEMP 98; O2SAT 98
== END 2017-01-19 23:40 | disposition left against medical advice (07) ==
LOC: ED 22:59
DX: Z02.89 Encounter for other administrative examinations (principal); F10.129 Alcohol abuse with intoxication, unspecified

== ENCOUNTER 2018-04-28 15:45 | Inpatient (IN) | payer MEDICAID, OTHER ==
--- NOTE | 2018-04-28 16:05 | ED PDOC ---
Arrival/HPI - General Chief Complaint: Cough, Cold, Congestion Historian: Patient - History of Present Illness Narrative History of Present Illness (Text): 04/28/18 16:05 A 53 year old male, whose past medical history includes lung mass, lung infection, fungal infection, presents to the emergency department complaining of cough and left ear pain for the last month and a half. Patient reports experiencing intermittent productive coughing with phlegm and pain radiating down the left side of his neck. Patient admits he smokes once in a while. Patient denies any fever, chills, shortness of breath, chest pain, diarrhea, nausea, vomiting, urinary symptoms, back pain, neck pain, headache, dizziness, or any other complaints. No PMD 04/28/18 20:09 Time/Duration: > month (a month and a half) Symptom Onset: Gradual Symptom Course: Unchanged Activities at Onset: Light Context: Home Past Medical History - Provider Review Nursing Documentation Reviewed: Yes - Infectious Disease Hx of Infectious Diseases: None - Tetanus Immunization Tetanus Immunization: Unknown - Cardiac Hx Cardiac Disorders: Yes Hx Heart Murmur: Yes - Pulmonary Hx Pneumonia: Yes - Neurological Hx Neurological Disorder: No - HEENT Hx HEENT Disorder: No - Renal Hx Renal Disorder: No - Endocrine/Metabolic Hx Endocrine Disorders: No - Hematological/Oncological Hx Blood Disorders: No - Integumentary Hx Dermatological Disorder: No - Musculoskeletal/Rheumatological Hx Gout: Yes - Gastrointestinal Hx Gastrointestinal Ulcer: Yes - Genitourinary/Gynecological Hx Genitourinary Disorders: No - Psychiatric Hx Psychophysiologic Disorder: No Hx Substance Use: No - Surgical History Other/Comment: LUNG BX right jaw - Anesthesia Hx Anesthesia: No Family/Social History - Physician Review Nursing Documentation Reviewed: Yes Family/Social History: No Known Family HX Smoking Status: Light Smoker < 10 Cigarettes Daily Hx Alcohol Use: Yes Hx Substance Use: No Allergies/Home Meds Allergies/Adverse Reactions: Allergies FISH Allergy (Verified 06/02/17 22:36) SWELLING Home Medications: Home Meds Medication Instructions Recorded Confirmed No Known Home Med 04/28/18 04/28/18 Review of Systems - Review of Systems Constitutional: Fatigue. absent: Fevers, Night Sweats Eyes: absent: Vision Changes ENT: Hearing Changes. absent: Voice Changes, Rhinorrhea Respiratory: SOB, Cough, Sputum (Phlegm). absent: Wheezing Cardiovascular: absent: Chest Pain, Edema, SIEGEL Gastrointestinal: absent: Abdominal Pain, Diarrhea, Nausea, Vomiting Genitourinary Male: absent: Hematuria Musculoskeletal: Other (Irritation to left ear and throat). absent: Back Pain, Neck Pain Skin: absent: Rash Neurological: absent: Headache, Dizziness Endocrine: absent: Polyuria Hemo/Lymphatic: absent: Easy Bleeding Physical Exam - Physical Exam Narrative Physical Exam (Text): 04/28/18 16:07 Head: Atraumatic. Normocephalic. Eyes: PERRL. EOMI. Conjunctivae are not pale. ENT: Mild erythema to left ear canal with drainage. There is cerumen noted in both ear canals. Left TM mildly erythematous. Mild periaruicular soft tissue swelling with some discomfort but no fluctuant mass, no mastoid tenderness. Neck: Supple. Full ROM. No JVD. No lymphadenopathy. No crepitus. No meningeal signs. Cardiovascular: Regular rate. Regular rhythm. No murmurs, rubs, or gallops. Distal pulses are 2+ and symmetric. Pulmonary/Chest: Bilateral expiratory wheezing. Abdominal: Soft and non-distended. There is no tenderness. No rebound, guarding, or rigidity. No organomegaly. Good bowel sounds. Back: No CVA tenderness. Extremities: No edema. No cyanosis. No clubbing. Full range of motion in all extremities. No calf tenderness. Skin: Skin is warm and dry. No petechiae. No purpura. Neurological: Alert, awake, and oriented. No slurred speech. Motor and sensory exam intact. Psychiatric: Good eye contact. Normal interaction, affect, and behavior. Vital Signs Reviewed: Yes Vital Signs Temp Pulse Resp BP Pulse Ox 04/28/18 15:53 97.6 F 78 20 124/82 99 Temperature: Afebrile Blood Pressure: Normal Pulse: Regular Respiratory Rate: Normal Appearance: Positive for: Well-Appearing, Non-Toxic Pain Distress: Mild Medical Decision Making ED Course and Treatment: 04/28/18 16:10 Impression: 53 year old male presenting with cough and left ear pain. Differential Diagnosis included but are not limited to: - PNA - fungal infection - COPD - Otitis media Plan: -- VBG -- Labs -- CBC -- Chest X-ray -- Blood culture -- Urine culture -- Influenza A B stat -- Urinalysis -- Reassess and disposition Prior Visits: Notes and results from previous visits were reviewed. Prior records reviewed specifically in June 2016 when patient was admitted for pneumonia. Progress Notes: Patient on exam with mild wheezing but history of progressive cough and sob over past month and half. cxr abnormal reveals left upper lobe mass, although present on prior cxr. 04/28/18 17:56 Procedure: Chest X-ray Impression: Stable left upper lobe mass. Dictator: Benedict Toure MD 04/28/18 20:49 There is some mild swelling to left ear canal, but no mastoid tenderness. No stridor. No respiratory distress. EKG unremarkable. Concern for progressive symptoms in light of history of poor compliance and history reportedly of prior fungal infection. Given increased symptoms, will admit for CT chest, assessment by ID, as patient was noncompliant with follow-up and prior antifungal treatment recommendations. Case d/w Dr. Alfaro accepts patient to hospitalist service. Iv antibiotics initiated. CT chest and CT iac pending at this time endorsed to admitting team. - RAD Interpretation Position Clerk: Radiologist - EKG Interpretation EKG Interpretation (Text): 04/28/18 20:12 EKG at 1631 sinus bradycardia rate of [address] elevations Interpreted by ED Physician: Yes Type: 12 lead EKG - Scribe Statement The provider has reviewed the documentation as recorded by the Jonnie Villarreal All medical record entries made by the Philippeibe were at my direction and personally dictated by me. I have reviewed the chart and agree that the record accurately reflects my personal performance of the history, physical exam, medical decision making, and the department course for this patient. I have also personally directed, reviewed, and agree with the discharge instructions and disposition. Disposition/Present on Arrival - Present on Arrival Any Indicators Present on Arrival: No History of DVT/PE: No History of Uncontrolled Diabetes: No Urinary Catheter: No History of Decub. Ulcer: No History Surgical Site Infection Following: None - Disposition Have Diagnosis and Disposition been Completed?: Yes Diagnosis: Lung mass, Cough Disposition: HOSPITALIZED Disposition Time: 20:53 Patient Plan: Admission Patient Problems: Current Active Problems Problem Status Onset Cough Acute Lung mass Acute Condition: FAIR Referrals: FAMILY PROVIDER,NO [Primary Care Provider] - Follow up with primary Forms: [employer] (Sing[place]an)
[2018-04-28] MEDS ORDERED: Albuterol-Ipratrop 3 mg / 0.5 (3 ml) UD IH STA (16:16)
[2018-04-28 16:46] LABS: BASO # 0.03 K/mm3 (0.0-2.0); BASO % 0.6 % (0.0-3.0); EOS # 0.1 (0.0-0.7); EOS % 2.2 % (1.5-5.0); GRAN # 1.91 (1.4-6.5); GRAN % 37.9 % (50.0-68.0); HEMOGLOBIN 13.6 g/dL (14.0-18.0); LYMPH # 2.6 (1.2-3.4); LYMPH % 50.8 % (22.0-35.0); MEAN CELL VOLUME 97.1 fl (80.0-105.0); MEAN PLATELET VOLUME 8.9 fl (7.0-11.0); MONO # 0.4 (0.1-0.6); MONO % 8.5 % (1.0-6.0); RBC 4.12 10^6/uL (3.5-6.1); RED CELL DISTRIBUTION WIDTH 16.7 % (11.5-14.5); VENOUS BLOOD GAS BASE EXCESS 3.2 mmol/L (0.0-2.0); VENOUS BLOOD GAS PO2 30 mm/Hg (30-55); VENOUS BLOOD PH 7.33 (7.32-7.43)
[2018-04-28 16:49] LABS: ALB/GLOB RATIO 1.3 (1.1-1.8); ALBUMIN 4.3 g/dL (3.0-4.8); ALT/SGPT 25 U/L (7-56); AST/SGOT 27 U/L (17-59); BLOOD UREA NITROGEN 13 mg/dL (7-21); CALCIUM 9.4 mg/dL (8.4-10.5); GFR NON-AFRICAN AMERICAN > 60
[2018-04-28 17:01] LABS: B-TYPE NATRIURETIC PEPTIDE 165 pg/mL (0-450); TROPONIN I < 0.01 ng/mL
--- NOTE | 2018-04-28 17:35 | RAD ---
Date of service: 04/28/2018 HISTORY: Cough several weeks duration. Relevant interventional procedure(s): 07/08/2016 CT-guided biopsy left upper lobe mass. COMPARISON: 08/29/2016. Single-view chest. 07/03/2016 CT thorax TECHNIQUE: Chest PA and lateral FINDINGS: LUNGS: Left upper lobe mass initially seen on CT scan 07/03/2016. No significant change. PLEURA: No significant pleural effusion identified. No pneumothorax apparent. CARDIOVASCULAR: No aortic atherosclerotic calcification present. Normal cardiac size. No pulmonary vascular congestion. OSSEOUS STRUCTURES: No significant abnormalities. VISUALIZED UPPER ABDOMEN: Normal. OTHER FINDINGS: None. IMPRESSION: Stable left upper lobe mass.
[2018-04-28 18:55] LABS: URINE BILIRUBIN NEGATIVE (NEGATIVE); URINE BLOOD NEGATIVE (NEGATIVE); URINE COLOR YELLOW (YELLOW); URINE GLUCOSE (UA) NEGATIVE (NEGATIVE); URINE LEUKOCYTE ESTERASE NEGATIVE Leu/uL (NEGATIVE); URINE PROTEIN TRACE mg/dL (<30 mg/dL); URINE UROBILINOGEN 0.2 E.U./dL (<1 E.U./dL)
[2018-04-28 18:56] LABS: URINE APPEARANCE CLEAR (CLEAR)
[2018-04-28 19:33] LABS: URINE BACTERIA SMALL (NEG); URINE EPITHELIAL CELLS 0 - 2 /hpf (0-5); URINE RBC 0 - 2 /hpf (0-2); URINE WBC NEGATIVE /hpf (0-6)
--- NOTE | 2018-04-28 20:08 | CARD ---
APPROVED REPORT Date of service: 04/28/2018 EKG Measurement Heart [id number] <Conclusion> Sinus bradycardia Otherwise normal ECG
[2018-04-28] MEDS ORDERED: cefTRIAXone 1 gm 1 GM/100 ML BAG IVPB STA (20:40)
[2018-04-28] MEDS ORDERED: Azithromycin 500MG/NS 250ml 500 MG/250 ML BAG IVPB STA (20:41)
--- NOTE | 2018-04-28 22:43 | CP.PCM.HP ---
<Jean López - Last Filed: 04/28/18 22:35> History of Present Illness - History of Present Illness History of Present Illness: Jean López PGY1 H&P for Dr. Alfaro Pt is a 53M with PMH fungal lung infection that presents to ED with cough x 1.5 months. Pt reports similar cough in the past, when he was admitted in 07/16 for fungal lung infection. Pt was d/c at that time with oral antifungals but reports never filling rx. Pt reports green sputum associated with cough, but denies blood in sputum. Pt also reports pain in L ear for the past few days. He denies fever, chills, night sweats, weight loss, shortness of breath, chest pain, abdominal pain, nausea, vomiting, diarrhea, constipation, dysuria, weakness, dizziness. Pt is homeless and lives underneath [address]. He reports exposure to sick contacts when visiting senior living for meals. SxH: jaw sx? SocH: 70 pack/yr tobacco use, denies etoh or recreational drugs FamH: denies Allergies: shellfish Meds: none PMD: none Present on Admission - Present on Admission Any Indicators Present on Admission: No Review of Systems - Review of Systems Review of Systems: as per HPI Past Patient History - Infectious Disease Hx of Infectious Diseases: None - Tetanus Immunizations Tetanus Immunization: Unknown - Past Medical History & Family History Past Medical History?: Yes - Past Social History Smoking Status: Light Smoker < 10 Cigarettes Daily - CARDIAC Hx Cardiac Disorders: Yes Hx Heart Murmur: Yes - PULMONARY Hx Pneumonia: Yes - NEUROLOGICAL Hx Neurological Disorder: No - HEENT Hx HEENT Problems: No - RENAL Hx Chronic Kidney Disease: No - ENDOCRINE/METABOLIC Hx Endocrine Disorders: No - HEMATOLOGICAL/ONCOLOGICAL Hx Blood Disorders: No - INTEGUMENTARY Hx Dermatological Problems: No - MUSCULOSKELETAL/RHEUMATOLOGICAL Hx Gout: Yes - GASTROINTESTINAL Hx Gastrointestinal Disorders: No - GENITOURINARY/GYNECOLOGICAL Hx Genitourinary Disorders: No - PSYCHIATRIC Hx Psychophysiologic Disorder: No Hx Substance Use: No - SURGICAL HISTORY Other/Comment: LUNG BX right jaw - ANESTHESIA Hx Anesthesia: No Meds Allergies/Adverse Reactions: Allergies Allergy/AdvReac Type Severity Reaction Status Date / Time FISH Allergy SWELLING Verified 06/02/17 22:36 Physical Exam - Constitutional Appears: Well, No Acute Distress - Head Exam Head Exam: ATRAUMATIC, NORMOCEPHALIC - Eye Exam Eye Exam: EOMI, Normal appearance - ENT Exam ENT Exam: Mucous Membranes Moist Additional comments: erythematous, edematous TM in L ear, wax wax in R ear - Neck Exam Neck exam: Positive for: Normal Inspection. Negative for: Lymphadenopathy - Respiratory Exam Respiratory Exam: Clear to Auscultation Bilateral, NORMAL BREATHING PATTERN. absent: Rales, Rhonchi, Wheezes - Cardiovascular Exam Cardiovascular Exam: REGULAR RHYTHM, +S1, +S2. absent: Gallop, Rubs, Systolic Murmur - GI/Abdominal Exam GI & Abdominal Exam: Normal Bowel Sounds, Soft. absent: Distended, Rebound, Tenderness - Extremities Exam Extremities exam: Positive for: normal inspection. Negative for: pedal edema - Neurological Exam Neurological exam: CN II-XII Intact, Normal Gait, Oriented x3 - Psychiatric Exam Psychiatric exam: Normal Affect, Normal Mood - Skin Skin Exam: Normal Color Results - Vital Signs Recent Vital Signs: Last Vital Signs Temp 97.6 F 04/28/18 15:53 Pulse 68 04/28/18 21:00 Resp 18 04/28/18 21:00 BP 120/76 04/28/18 21:00 Pulse Ox 98 04/28/18 21:00 - Labs Result Diagrams: 04/28/18 16:22 04/28/18 16:22 Labs: Laboratory Results - last 24 hr 04/28/18 04/28/18 04/28/18 16:21 16:22 16:22 WBC 5.0 RBC 4.12 Hgb 13.6 L Hct 40.0 L MCV 97.1 MCH 33.0 MCHC 34.0 RDW 16.7 H Plt Count 229 MPV 8.9 Gran % 37.9 L Lymph % (Auto) 50.8 H [place] % (Auto) 8.5 H Eos % (Auto) 2.2 Baso % (Auto) 0.6 Gran # 1.91 Lymph # (Auto) 2.6 [place] # (Auto) 0.4 Eos # (Auto) 0.1 Baso # (Auto) 0.03 pO2 VBG pH VBG pCO2 VBG HCO3 VBG Total CO2 VBG O2 Sat (Calc) VBG Base Excess VBG Potassium Sodium Chloride Glucose Lactate FiO2 Potassium Carbon Dioxide Anion Gap BUN Creatinine Est GFR ( Amer) Est GFR (Non-Af Amer) POC Glucose (mg/dL) 82 Random Glucose Calcium Total Bilirubin AST ALT Alkaline Phosphatase Lactate Dehydrogenase Total Creatine Kinase Troponin I NT-Pro-B Natriuret Pep Total Protein Albumin Globulin Albumin/Globulin Ratio Venous Blood Potassium Urine Color Urine Appearance Urine pH Ur Specific Egnar Urine Protein Urine Glucose (UA) Urine Ketones Urine Blood Urine Nitrate Urine Bilirubin Urine Urobilinogen Ur Leukocyte Esterase Urine RBC Urine WBC Ur Epithelial Cells Urine Bacteria Urine Other Influenza Typ A,B (EIA) Negative for flu a/b 04/28/18 04/28/18 04/28/18 16:22 16:22 18:22 WBC RBC Hgb Hct MCV MCH MCHC RDW Plt Count MPV Gran % Lymph % (Auto) [place] % (Auto) Eos % (Auto) Baso % (Auto) Gran # Lymph # (Auto) [place] # (Auto) Eos # (Auto) Baso # (Auto) pO2 30 VBG pH 7.33 VBG pCO2 58.0 VBG HCO3 30.6 H VBG Total CO2 32.4 H VBG O2 Sat (Calc) 61.5 VBG Base Excess 3.2 H VBG Potassium 4.4 Sodium 140 140.0 Chloride 105 103.0 Glucose 98 Lactate 0.8 FiO2 21.0 Potassium 4.2 Carbon Dioxide 29 Anion Gap 11 BUN 13 Creatinine 0.9 Est GFR ( Amer) > 60 Est GFR (Non-Af Amer) > 60 POC Glucose (mg/dL) Random Glucose 96 Calcium 9.4 Total Bilirubin 0.4 AST 27 ALT 25 Alkaline Phosphatase 66 Lactate Dehydrogenase 385 Total Creatine Kinase 229 Troponin I < 0.01 D NT-Pro-B Natriuret Pep 165 Total Protein 7.6 Albumin 4.3 Globulin 3.4 Albumin/Globulin Ratio 1.3 Venous Blood Potassium 4.4 Urine Color Yellow Urine Appearance Clear Urine pH 7.0 Ur Specific Egnar 1.015 Urine Protein Trace H Urine Glucose (UA) Negative Urine Ketones Negative Urine Blood Negative Urine Nitrate Negative Urine Bilirubin Negative Urine Urobilinogen 0.2 Ur Leukocyte Esterase Negative Urine RBC 0 - 2 Urine WBC Negative Ur Epithelial Cells 0 - 2 Urine Bacteria Small Urine Other Mucus Influenza Typ A,B (EIA) Assessment & Plan - Assessment and Plan (Free Text) Assessment: 53M with PMH fungal lung infection that presents to ED with cough admitted for recurrent L upper lobe infiltrate, r/o PNA. Plan: L upper Lobe mass - h/o fungal infection in L upper lobe mass, 07/16 - pt did not take antifungals upon d/c - afebrile, no leukocytosis - CT chest: MINERVA mass 3.3x 2.3cm. 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 Gray - f/u recs - airborne isolation L otitis media - pt afebrile, no leukocytosis - cipro 1 drop BID PPx GI: pepcid DVT: SCDs Regular Diet Pt seen and case reviewed with Dr. Alfaro <Christian Alfaro - Last Filed: 04/29/18 18:47> Results - Vital Signs Recent Vital Signs: Last Vital Signs Temp 98.7 F 04/29/18 14:39 Pulse 66 04/29/18 14:39 Resp 22 04/29/18 14:39 BP 84/50 L 04/29/18 14:39 Pulse Ox 100 04/29/18 14:39 - Labs Result Diagrams: 04/29/18 07:30 04/29/18 07:30 Labs: Laboratory Results - last 24 hr 04/28/18 04/28/18 04/28/18 16:21 18:22 23:05 WBC RBC Hgb Hct MCV MCH MCHC RDW Plt Count MPV Gran % Lymph % (Auto) [place] % (Auto) Eos % (Auto) Baso % (Auto) Gran # Lymph # (Auto) [place] # (Auto) Eos # (Auto) Baso # (Auto) ESR PT INR APTT Sodium Potassium Chloride Carbon Dioxide Anion Gap BUN Creatinine Est GFR ( Amer) Est GFR (Non-Af Amer) POC Glucose (mg/dL) 82 114 H Random Glucose Calcium Iron TIBC % Saturation Ferritin Total Bilirubin AST ALT Alkaline Phosphatase Lactate Dehydrogenase C-Reactive Protein Total Protein Albumin Globulin Albumin/Globulin Ratio Procalcitonin Urine Color Yellow Urine Appearance Clear Urine pH 7.0 Ur Specific Egnar 1.015 Urine Protein Trace H Urine Glucose (UA) Negative Urine Ketones Negative Urine Blood Negative Urine Nitrate Negative Urine Bilirubin Negative Urine Urobilinogen 0.2 Ur Leukocyte Esterase Negative Urine RBC 0 - 2 Urine WBC Negative Ur Epithelial Cells 0 - 2 Urine Bacteria Small Urine Other Mucus Mycoplasma pneumon IgM 04/29/18 04/29/18 04/29/18 07:30 07:30 07:30 WBC RBC Hgb Hct MCV MCH MCHC RDW Plt Count MPV Gran % Lymph % (Auto) [place] % (Auto) Eos % (Auto) Baso % (Auto) Gran # Lymph # (Auto) [place] # (Auto) Eos # (Auto) Baso # (Auto) ESR PT INR APTT Sodium 141 Potassium 4.0 Chloride 106 Carbon Dioxide 28 Anion Gap 11 BUN 10 Creatinine 0.8 Est GFR ( Amer) > 60 Est GFR (Non-Af Amer) > 60 POC Glucose (mg/dL) Random Glucose 97 Calcium 9.0 Iron 93 TIBC 295 % Saturation 32 Ferritin Total Bilirubin 0.4 AST 27 ALT 32 Alkaline Phosphatase 60 Lactate Dehydrogenase 318 L C-Reactive Protein Total Protein 6.9 Albumin 3.7 Globulin 3.2 Albumin/Globulin Ratio 1.2 Procalcitonin < 0.05 L Urine Color Urine Appearance Urine pH Ur Specific Egnar Urine Protein Urine Glucose (UA) Urine Ketones Urine Blood Urine Nitrate Urine Bilirubin Urine Urobilinogen Ur Leukocyte Esterase Urine RBC Urine WBC Ur Epithelial Cells Urine Bacteria Urine Other Mycoplasma pneumon IgM Negative 04/29/18 04/29/18 04/29/18 07:30 07:30 07:30 WBC 3.8 L D RBC 3.93 Hgb 13.0 L Hct 37.8 L MCV 96.2 MCH 33.1 MCHC 34.4 RDW 17.5 H Plt Count 215 MPV 9.5 Gran % 37.6 L Lymph % (Auto) 48.8 H [place] % (Auto) 9.3 H Eos % (Auto) 4.0 Baso % (Auto) 0.3 Gran # 1.42 Lymph # (Auto) 1.8 [place] # (Auto) 0.4 Eos # (Auto) 0.2 Baso # (Auto) 0.01 ESR PT 11.8 INR 1.03 APTT 29.9 Sodium Potassium Chloride Carbon Dioxide Anion Gap BUN Creatinine Est GFR ( Amer) Est GFR (Non-Af Amer) POC Glucose (mg/dL) Random Glucose Calcium Iron TIBC % Saturation Ferritin 116.0 Total Bilirubin AST ALT Alkaline Phosphatase Lactate Dehydrogenase C-Reactive Protein Total Protein Albumin Globulin Albumin/Globulin Ratio Procalcitonin Urine Color Urine Appearance Urine pH Ur Specific E[place] Urine Protein Urine Glucose (UA) Urine Ketones Urine Blood Urine Nitrate Urine Bilirubin Urine Urobilinogen Ur Leukocyte Esterase Urine RBC Urine WBC Ur Epithelial Cells Urine Bacteria Urine Other Mycoplasma pneumon IgM 04/29/18 04/29/18 04/29/18 09:45 09:45 11:02 WBC RBC Hgb Hct MCV MCH MCHC RDW Plt Count MPV Gran % Lymph % (Auto) [place] % (Auto) Eos % (Auto) Baso % (Auto) Gran # Lymph # (Auto) [place] # (Auto) Eos # (Auto) Baso # (Auto) ESR 15 PT INR APTT Sodium Potassium Chloride Carbon Dioxide Anion Gap BUN Creatinine Est GFR ( Amer) Est GFR (Non-Af Amer) POC Glucose (mg/dL) 429 H* Random Glucose Calcium Iron TIBC % Saturation Ferritin Total Bilirubin AST ALT Alkaline Phosphatase Lactate Dehydrogenase C-Reactive Protein < 5.00 Total Protein Albumin Globulin Albumin/Globulin Ratio Procalcitonin Urine Color Urine Appearance Urine pH Ur Specific [place]ar Urine Protein Urine Glucose (UA) Urine Ketones Urine Blood Urine Nitrate Urine Bilirubin Urine Urobilinogen Ur Leukocyte Esterase Urine RBC Urine WBC Ur Epithelial Cells Urine Bacteria Urine Other Mycoplasma pneumon IgM 04/29/18 11:52 WBC RBC Hgb Hct MCV MCH MCHC RDW Plt Count MPV Gran % Lymph % (Auto) [place] % (Auto) Eos % (Auto) Baso % (Auto) Gran # Lymph # (Auto) [place] # (Auto) Eos # (Auto) Baso # (Auto) ESR PT INR APTT Sodium Potassium Chloride Carbon Dioxide Anion Gap BUN Creatinine Est GFR ( Amer) Est GFR (Non-Af Amer) POC Glucose (mg/dL) 89 Random Glucose Calcium Iron TIBC % Saturation Ferritin Total Bilirubin AST ALT Alkaline Phosphatase Lactate Dehydrogenase C-Reactive Protein Total Protein Albumin Globulin Albumin/Globulin Ratio Procalcitonin Urine Color Urine Appearance Urine pH Ur Specific [place] Urine Protein Urine Glucose (UA) Urine Ketones Urine Blood Urine Nitrate Urine Bilirubin Urine Urobilinogen Ur Leukocyte Esterase Urine RBC Urine WBC Ur Epithelial Cells Urine Bacteria Urine Other Mycoplasma pneumon IgM Attending/Attestation - Attestation I have personally seen and examined this patient.: Yes I have fully participated in the care of the patient.: Yes I have reviewed all pertinent clinical information: Yes
[2018-04-28 23:24] VITALS: BMI 24.0
[2018-04-29] MEDS: Ciprofloxacin/Dexamethasone OTIC SUSP AS SCH ×3 (00:28→18:55)
[2018-04-29 08:15] LABS: INR 1.03; PARTIAL THROMBOPLASTIN TIME 29.9 Seconds (25.1-36.5); PROTHROMBIN TIME 11.8 SECONDS (9.4-12.5)
[2018-04-29 08:23] LABS: IRON 93 ug/dL (45-180)
[2018-04-29 08:32] LABS: % IRON SATURATION 32 % (20-55); TOTAL IRON BINDING CAPACITY 295 ug/dL (261-462)
[2018-04-29 08:33] LABS: ALB/GLOB RATIO 1.2 (1.1-1.8); ALBUMIN 3.7 g/dL (3.0-4.8); ALT/SGPT 32 U/L (7-56); AST/SGOT 27 U/L (17-59); BLOOD UREA NITROGEN 10 mg/dL (7-21); GFR NON-AFRICAN AMERICAN > 60
[2018-04-29 08:39] LABS: BASO # 0.01 K/mm3 (0.0-2.0); BASO % 0.3 % (0.0-3.0); EOS # 0.2 (0.0-0.7); GRAN # 1.42 (1.4-6.5); GRAN % 37.6 % (50.0-68.0); LYMPH # 1.8 (1.2-3.4); LYMPH % 48.8 % (22.0-35.0); MEAN CELL VOLUME 96.2 fl (80.0-105.0); MEAN CORPUSCULAR HEMOGLOBIN 33.1 pg (25.0-35.0); MEAN CORPUSCULAR HGB CONC 34.4 g/dl (31.0-37.0); MEAN PLATELET VOLUME 9.5 fl (7.0-11.0); MONO # 0.4 (0.1-0.6); MONO % 9.3 % (1.0-6.0); RBC 3.93 10^6/uL (3.5-6.1); RED CELL DISTRIBUTION WIDTH 17.5 % (11.5-14.5); WHITE BLOOD COUNT 3.8 10^3/uL (4.5-11.0)
[2018-04-29] MEDS: cefTRIAXone 1 gm 1 GM/100 ML BAG IVPB SCH (10:01)
[2018-04-29] MEDS: Azithromycin 500MG/NS 250ml 500 MG/250 ML BAG IVPB SCH (10:02)
--- NOTE | 2018-04-29 11:29 | CT ---
Date of service: 04/28/2018 PROCEDURE: CT Chest without contrast HISTORY: Evaluate left upper lobe mass, sob COMPARISON: Comparison made with prior CT scan and CT see a guided biopsy studies dated 07/03/2016 and 07/08/2016 respectively. TECHNIQUE: Contiguous axial images were obtained through the chest without intravenous contrast enhancement. Sagittal and coronal reconstructions were performed. Radiation dose: Total exam DLP = 185.81 mGy-cm. This CT exam was performed using one or more of the following dose reduction techniques: Automated exposure control, adjustment of the mA and/or kV according to patient size, and/or use of iterative reconstruction technique. FINDINGS: LUNGS: There is an elliptical shaped soft tissue density medial aspect left lung apex/upper lobe that measures approximately 2.4 x 1.5 cm and appears to be surrounded by a rim of air. 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 Multiple biapical blebs and a few bullous changes are again seen the largest bulla located in the left medial lung apex measuring approximately 3.5 cm. Multiple smaller pleural based peripheral cystic changes are present in the upper lobes as well. Previously described infiltrates medial segment right middle lobe, posterior medial segment left lower lobe and lesser changes in the right lower lobe resolved. There does appear to be some mild passive/dependent type atelectasis both posterior lower lung hernandez. MEDIASTINUM: Heart size normal. No significant pericardial effusion. The ascending thoracic aorta slightly dilated measuring approximately 4 cm. Descending thoracic aorta measures approximately 2.7 cm.. Minimal aortic atherosclerotic calcification. Pulmonary trunk measures approximately 2.4 cm. No significant mediastinal adenopathy. Evaluation for hilar adenopathy limited due to the lack of circulating intravenous contrast material. Trachea is midline and patent with no large central endoluminal lesions.. Small hiatal hernia. PLEURA: No pleural fluid. No pneumothorax. BONES: Minor multilevel degenerative spondylosis of the thoracic spine. There are no acute compression fractures no retropulsed fragments. UPPER ABDOMEN: Grossly unremarkable. OTHER FINDINGS: Minimal changes of bilateral gynecomastia present. 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 Repeat biopsy may be prudent if clinically indicated. Multiple biapical blebs and a few bullous changes are again seen the largest of bulla located in the left medial lung apex measuring approximately 3.5 cm greatest dimension. Multiple smaller pleural based peripheral cystic changes are present in the upper lobes as well. Previously described infiltrates medial segment right middle lobe, posterior medial segment left lower lobe and lesser changes in the right lower lobe resolved. There does appear to be some mild passive/dependent type atelectasis both posterior lower lung hernandez.
[2018-04-29] MEDS ORDERED: Albuterol-Ipratrop 3 mg / 0.5 (3 ml) UD IH PRN (11:53)
--- NOTE | 2018-04-29 11:57 | CT ---
Date of service: 2018-04-28 18:50:01 PROCEDURE: CT OF THE TEMPORAL BONES WITHOUT CONTRAST HISTORY: Left facial/ear swelling/pain COMPARISON: Comparison made with CT scan maxillofacial skeleton 09/26/2016 which partially image the temporal bones. TECHNIQUE: High resolution axial images of the temporal bones were obtained. Coronal and sagittal reformats were generated. Radiation dose: Total exam DLP = 499.2 mGy-cm. This CT exam was performed using one or more of the following dose reduction techniques: Automated exposure control, adjustment of the mA and/or kV according to patient size, and/or use of iterative reconstruction technique. FINDINGS: RIGHT TEMPORAL BONE: RIGHT MIDDLE EAR: Normal. RIGHT INNER EAR: Cochlea: Normal. Semicircular canals: Normal. RIGHT MASTOID AIR CELLS: Normal. RIGHT INTERNAL AUDITORY CANAL: Normal. RIGHT EXTERNAL AUDITORY CANAL: Small amount of cerumen present within the right external auditory canal. Outer cortex of the right external auditory canal intact without destructive change RIGHT VESTIBULAR AND COCHLEAR AQUEDUCT: Normal. OTHER FINDINGS: None. LEFT TEMPORAL BONE: LEFT MIDDLE EAR: Normal. LEFT INNER EAR: Cochlea: Normal. Semicircular canals: Normal. LEFT MASTOID AIR CELLS: Normal. LEFT INTERNAL AUDITORY CANAL: Normal. LEFT EXTERNAL AUDITORY CANAL: Small amount of cerumen present within the left the external auditory canal. The lateral cortex of the left external auditory canal intact without destructive changes. LEFT VESTIBULAR AND COCHLEAR AQUEDUCTS: Normal. OTHER FINDINGS: No obvious drainable fluid collections are present within the left facial or posterior auricular soft tissues. No evidence of subcutaneous the emphysema IMPRESSION: Cerumen is present within both external auditory canals. No evidence of destructive changes of outer cortices of the right or left external auditory canals. No evidence of drainable fluid collections or subcutaneous emphysema.
[2018-04-29] MEDS: Albuterol-Ipratrop 3 mg / 0.5 (3 ml) UD IH SCH ×2 (13:09→21:06)
--- NOTE | 2018-04-29 15:25 | CP.PCM.CON ---
History of Present Illness - History of Present Illness History of Present Illness: PULM CONSULT 53 year old homeless male with history of smoking, likely COPD , and cavitary lung mass which was suspected to be mycetoma admitted with cough. Cough has been going for 6 weeks with some green sputum. he says he feels well now and couhg is improved. No fevers, no night sweats, no unintentinal weight loss. No recent travel. His pulm history including smoking since child real. At one point 2-3ppd, now down to 4-5 cigs per day. He does not take inhaler because he belives they are "stupid". He was admitted in Jun 2016 with CAP but also found to have a left apical cavitary mass that was workup and Sputum culture revealed yeast. CT guided lung biopsy revealed septated hyphae. 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 Past Patient History - Infectious Disease Hx of Infectious Diseases: None - Tetanus Immunizations Tetanus Immunization: Unknown - Past Medical History & Family History Past Medical History?: Yes - Past Social History Smoking Status: Light Smoker < 10 Cigarettes Daily - CARDIAC Hx Cardiac Disorders: Yes Hx Heart Murmur: Yes - PULMONARY Hx Pneumonia: Yes - NEUROLOGICAL Hx Neurological Disorder: No - HEENT Hx HEENT Problems: No - RENAL Hx Chronic Kidney Disease: No - ENDOCRINE/METABOLIC Hx Endocrine Disorders: No - HEMATOLOGICAL/ONCOLOGICAL Hx Blood Disorders: No - INTEGUMENTARY Hx Dermatological Problems: No - MUSCULOSKELETAL/RHEUMATOLOGICAL Hx Falls: No Hx Gout: Yes - GASTROINTESTINAL Hx Gastrointestinal Disorders: No - GENITOURINARY/GYNECOLOGICAL Hx Genitourinary Disorders: No - PSYCHIATRIC Hx Psychophysiologic Disorder: No - SURGICAL HISTORY Other/Comment: LUNG BX right jaw - ANESTHESIA Hx Anesthesia: No Meds Allergies/Adverse Reactions: Allergies Allergy/AdvReac Type Severity Reaction Status Date / Time FISH Allergy SWELLING Verified 06/02/17 22:36 - Medications Medications: Current Medications Albuterol/Ipratropium (Duoneb 3 Mg/0.5 Mg (3 Ml) Ud) 3 ml IH [id number] [facility] Last Admin: 04/29/18 13:09 Dose: 3 ml Albuterol/Ipratropium (Duoneb 3 Mg/0.5 Mg (3 Ml) Ud) 3 ml IH Q2H PRN PRN Reason: Shortness of Breath Ciprofloxacin/Dexamethasone (Ciprodex Otic) 1 drop BID DEV Last Admin: 04/29/18 10:20 Dose: 1 drop Famotidine (Pepcid) 20 mg PO BID DEV Last Admin: 04/29/18 10:00 Dose: 20 mg Ceftriaxone Sodium (Rocephin 1 Gram Ivpb) 1 gm in 100 mls @ 100 mls/hr IVPB DAILY DEV; Protocol Last Admin: 04/29/18 10:01 Dose: 100 mls/hr Voriconazole 200 mg/ Sodium (Chloride) 100 mls @ 50 mls/hr IVPB Q12 DEV; Protocol Last Admin: 04/29/18 10:00 Dose: 50 mls/hr Azithromycin (Zithromax 500mg In Ns) 500 mg in 250 mls @ 167 mls/hr IVPB DAILY DEV; Protocol Last Admin: 04/29/18 10:02 Dose: 167 mls/hr Nicotine (Nicoderm Cq) 1 patch TD DAILY DEV Last Admin: 04/29/18 10:00 Dose: 1 patch Physical Exam - Constitutional Appears: Unkempt, Older Than Stated Age - Head Exam Head Exam: ATRAUMATIC, NORMAL INSPECTION, NORMOCEPHALIC - Respiratory Exam Respiratory Exam: Prolonged Expiratory Phase, Wheezes, NORMAL BREATHING PATTERN. absent: Accessory Muscle Use, Respiratory Distress, Stridor - Cardiovascular Exam Cardiovascular Exam: REGULAR RHYTHM - Extremities Exam Extremities exam: Positive for: normal inspection Results - Vital Signs Recent Vital Signs: Last Vital Signs Temp 98.7 F 04/29/18 14:39 Pulse 66 04/29/18 14:39 Resp 22 04/29/18 14:39 BP 84/50 L 04/29/18 14:39 Pulse Ox 100 04/29/18 14:39 - Labs Result Diagrams: 04/29/18 07:30 04/29/18 07:30 Labs: Laboratory Results - last 24 hr 04/28/18 04/28/18 04/28/18 16:21 16:22 16:22 WBC 5.0 RBC 4.12 Hgb 13.6 L Hct 40.0 L MCV 97.1 MCH 33.0 MCHC 34.0 RDW 16.7 H Plt Count 229 MPV 8.9 Gran % 37.9 L Lymph % (Auto) 50.8 H [place] % (Auto) 8.5 H Eos % (Auto) 2.2 Baso % (Auto) 0.6 Gran # 1.91 Lymph # (Auto) 2.6 [place] # (Auto) 0.4 Eos # (Auto) 0.1 Baso # (Auto) 0.03 ESR PT INR APTT pO2 VBG pH VBG pCO2 VBG HCO3 VBG Total CO2 VBG O2 Sat (Calc) VBG Base Excess VBG Potassium Sodium Chloride Glucose Lactate FiO2 Potassium Carbon Dioxide Anion Gap BUN Creatinine Est GFR ( Amer) Est GFR (Non-Af Amer) POC Glucose (mg/dL) 82 Random Glucose Calcium Iron TIBC % Saturation Ferritin Total Bilirubin AST ALT Alkaline Phosphatase Lactate Dehydrogenase Total Creatine Kinase Troponin I NT-Pro-B Natriuret Pep Total Protein Albumin Globulin Albumin/Globulin Ratio Venous Blood Potassium Urine Color Urine Appearance Urine pH Ur Specific [place] Urine Protein Urine Glucose (UA) Urine Ketones Urine Blood Urine Nitrate Urine Bilirubin Urine Urobilinogen Ur Leukocyte Esterase Urine RBC Urine WBC Ur Epithelial Cells Urine Bacteria Urine Other Influenza Typ A,B (EIA) Negative for flu a/b 04/28/18 04/28/18 04/28/18 16:22 16:22 18:22 WBC RBC Hgb Hct MCV MCH MCHC RDW Plt Count MPV Gran % Lymph % (Auto) [place] % (Auto) Eos % (Auto) Baso % (Auto) Gran # Lymph # (Auto) [place] # (Auto) Eos # (Auto) Baso # (Auto) ESR PT INR APTT pO2 30 VBG pH 7.33 VBG pCO2 58.0 VBG HCO3 30.6 H VBG Total CO2 32.4 H VBG O2 Sat (Calc) 61.5 VBG Base Excess 3.2 H VBG Potassium 4.4 Sodium 140 140.0 Chloride 105 103.0 Glucose 98 Lactate 0.8 FiO2 21.0 Potassium 4.2 Carbon Dioxide 29 Anion Gap 11 BUN 13 Creatinine 0.9 Est GFR ( Amer) > 60 Est GFR (Non-Af Amer) > 60 POC Glucose (mg/dL) Random Glucose 96 Calcium 9.4 Iron TIBC % Saturation Ferritin Total Bilirubin 0.4 AST 27 ALT 25 Alkaline Phosphatase 66 Lactate Dehydrogenase 385 Total Creatine Kinase 229 Troponin I < 0.01 D NT-Pro-B Natriuret Pep 165 Total Protein 7.6 Albumin 4.3 Globulin 3.4 Albumin/Globulin Ratio 1.3 Venous Blood Potassium 4.4 Urine Color Yellow Urine Appearance Clear Urine pH 7.0 Ur Specific [place] 1.015 Urine Protein Trace H Urine Glucose (UA) Negative Urine Ketones Negative Urine Blood Negative Urine Nitrate Negative Urine Bilirubin Negative Urine Urobilinogen 0.2 Ur Leukocyte Esterase Negative Urine RBC 0 - 2 Urine WBC Negative Ur Epithelial Cells 0 - 2 Urine Bacteria Small Urine Other Mucus Influenza Typ A,B (EIA) 04/28/18 04/29/18 04/29/18 23:05 07:30 07:30 WBC RBC Hgb Hct MCV MCH MCHC RDW Plt Count MPV Gran % Lymph % (Auto) [place] % (Auto) Eos % (Auto) Baso % (Auto) Gran # Lymph # (Auto) [place] # (Auto) Eos # (Auto) Baso # (Auto) ESR PT INR APTT pO2 VBG pH VBG pCO2 VBG HCO3 VBG Total CO2 VBG O2 Sat (Calc) VBG Base Excess VBG Potassium Sodium 141 Chloride 106 Glucose Lactate FiO2 Potassium 4.0 Carbon Dioxide 28 Anion Gap 11 BUN 10 Creatinine 0.8 Est GFR ( Amer) > 60 Est GFR (Non-Af Amer) > 60 POC Glucose (mg/dL) 114 H Random Glucose 97 Calcium 9.0 Iron 93 TIBC 295 % Saturation 32 Ferritin Total Bilirubin 0.4 AST 27 ALT 32 Alkaline Phosphatase 60 Lactate Dehydrogenase 318 L Total Creatine Kinase Troponin I NT-Pro-B Natriuret Pep Total Protein 6.9 Albumin 3.7 Globulin 3.2 Albumin/Globulin Ratio 1.2 Venous Blood Potassium Urine Color Urine Appearance Urine pH Ur Specific [place] Urine Protein Urine Glucose (UA) Urine Ketones Urine Blood Urine Nitrate Urine Bilirubin Urine Urobilinogen Ur Leukocyte Esterase Urine RBC Urine WBC Ur Epithelial Cells Urine Bacteria Urine Other Influenza Typ A,B (EIA) 04/29/18 04/29/18 04/29/18 07:30 07:30 07:30 WBC 3.8 L D RBC 3.93 Hgb 13.0 L Hct 37.8 L MCV 96.2 MCH 33.1 MCHC 34.4 RDW 17.5 H Plt Count 215 MPV 9.5 Gran % 37.6 L Lymph % (Auto) 48.8 H [place] % (Auto) 9.3 H Eos % (Auto) 4.0 Baso % (Auto) 0.3 Gran # 1.42 Lymph # (Auto) 1.8 [place] # (Auto) 0.4 Eos # (Auto) 0.2 Baso # (Auto) 0.01 ESR PT 11.8 INR 1.03 APTT 29.9 pO2 VBG pH VBG pCO2 VBG HCO3 VBG Total CO2 VBG O2 Sat (Calc) VBG Base Excess VBG Potassium Sodium Chloride Glucose Lactate FiO2 Potassium Carbon Dioxide Anion Gap BUN Creatinine Est GFR ( Amer) Est GFR (Non-Af Amer) POC Glucose (mg/dL) Random Glucose Calcium Iron TIBC % Saturation Ferritin 116.0 Total Bilirubin AST ALT Alkaline Phosphatase Lactate Dehydrogenase Total Creatine Kinase Troponin I NT-Pro-B Natriuret Pep Total Protein Albumin Globulin Albumin/Globulin Ratio Venous Blood Potassium Urine Color Urine Appearance Urine pH Ur Specific [place] Urine Protein Urine Glucose (UA) Urine Ketones Urine Blood Urine Nitrate Urine Bilirubin Urine Urobilinogen Ur Leukocyte Esterase Urine RBC Urine WBC Ur Epithelial Cells Urine Bacteria Urine Other Influenza Typ A,B (EIA) 04/29/18 04/29/18 04/29/18 09:45 11:02 11:52 WBC RBC Hgb Hct MCV MCH MCHC RDW Plt Count MPV Gran % Lymph % (Auto) [place] % (Auto) Eos % (Auto) Baso % (Auto) Gran # Lymph # (Auto) [place] # (Auto) Eos # (Auto) Baso # (Auto) ESR 15 PT INR APTT pO2 VBG pH VBG pCO2 VBG HCO3 VBG Total CO2 VBG O2 Sat (Calc) VBG Base Excess VBG Potassium Sodium Chloride Glucose Lactate FiO2 Potassium Carbon Dioxide Anion Gap BUN Creatinine Est GFR ( Amer) Est GFR (Non-Af Amer) POC Glucose (mg/dL) 429 H* 89 Random Glucose Calcium Iron TIBC % Saturation Ferritin Total Bilirubin AST ALT Alkaline Phosphatase Lactate Dehydrogenase Total Creatine Kinase Troponin I NT-Pro-B Natriuret Pep Total Protein Albumin Globulin Albumin/Globulin Ratio Venous Blood Potassium Urine Color Urine Appearance Urine pH Ur Specific [place] Urine Protein Urine Glucose (UA) Urine Ketones Urine Blood Urine Nitrate Urine Bilirubin Urine Urobilinogen Ur Leukocyte Esterase Urine RBC Urine WBC Ur Epithelial Cells Urine Bacteria Urine Other Influenza Typ A,B (EIA) Assessment & Plan - Assessment and Plan (Free Text) Assessment: Overall 53M with extensive smoking history as well as 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 ID on board for aspergilloma. I agree with completing course of Vori however given patient's poor compliance and resistance to taking abx, surgical option may be preferred. He has agreed to duonebs which he should be on standing while here. He will need outpatient PFTs to evaluate lung function. I offered him eval to see if he can be seen in the community pulm clinic however he remains undecided. Smoking cessation counseled Kavon Anthony MD Pulmonary Critical Care and Sleep Medicine
--- NOTE | 2018-04-29 15:41 | CP.PCM.PN ---
<Prince Patel - Last Filed: 04/29/18 15:36> Subjective - Date & Time of Evaluation Date of Evaluation: 04/29/18 Time of Evaluation: 15:36 - Subjective Subjective: Internal Medicine Progress Note Patient seen and assessed at bedside with family friend present at bedside. No acute events overnight. Patient currently denies any complaints and 12 point ROS is unremarkable at this time. Objective - Vital Signs/Intake and Output Vital Signs (last 24 hours): Temp Pulse Resp BP Pulse Ox 98.7 F 66 22 84/50 L 100 04/29/18 14:39 04/29/18 14:39 04/29/18 14:39 04/29/18 14:39 04/29/18 14:39 Intake and Output: 04/29/18 04/29/18 06:59 18:59 Intake Total 250 Balance 250 - Medications Medications: Current Medications Albuterol/Ipratropium (Duoneb 3 Mg/0.5 Mg (3 Ml) Ud) 3 ml IH [id number] Last Admin: 04/29/18 13:09 Dose: 3 ml Albuterol/Ipratropium (Duoneb 3 Mg/0.5 Mg (3 Ml) Ud) 3 ml IH Q2H PRN PRN Reason: Shortness of Breath Ciprofloxacin/Dexamethasone (Ciprodex Otic) 1 drop BID DEV Last Admin: 04/29/18 10:20 Dose: 1 drop Famotidine (Pepcid) 20 mg PO BID DEV Last Admin: 04/29/18 10:00 Dose: 20 mg Ceftriaxone Sodium (Rocephin 1 Gram Ivpb) 1 gm in 100 mls @ 100 mls/hr IVPB DAILY DEV; Protocol Last Admin: 04/29/18 10:01 Dose: 100 mls/hr Voriconazole 200 mg/ Sodium (Chloride) 100 mls @ 50 mls/hr IVPB Q12 DEV; Protocol Last Admin: 04/29/18 10:00 Dose: 50 mls/hr Azithromycin (Zithromax 500mg In Ns) 500 mg in 250 mls @ 167 mls/hr IVPB DAILY DEV; Protocol Last Admin: 04/29/18 10:02 Dose: 167 mls/hr Nicotine (Nicoderm Cq) 1 patch TD DAILY DEV Last Admin: 04/29/18 10:00 Dose: 1 patch - Labs Labs: 04/29/18 07:30 04/29/18 07:30 PT 11.8 SECONDS (9.4-12.5) 04/29/18 07:30 INR 1.03 04/29/18 07:30 APTT 29.9 Seconds (25.1-36.5) 04/29/18 07:30 - Constitutional Appears: Non-toxic, No Acute Distress - Head Exam Head Exam: ATRAUMATIC, NORMOCEPHALIC - Eye Exam Eye Exam: EOMI, Normal appearance, PERRL Pupil Exam: NORMAL ACCOMODATION - ENT Exam ENT Exam: Normal External Ear Exam, Normal Oropharynx. absent: TM's Normal Bilaterally Additional comments: Cerumen bilaterally and L TM with mild erythema - Neck Exam Neck Exam: Full ROM, Normal Inspection. absent: Lymphadenopathy, Meningismus, Tenderness, Thyromegaly - Respiratory Exam Respiratory Exam: Prolonged Expiratory Phase, Wheezes, NORMAL BREATHING PATTERN. absent: Accessory Muscle Use, Chest Wall Tenderness, Decreased Breath Sounds, Clear to Ausculation Bilateral, Rales, Rhonchi, Respiratory Distress, Stridor - Cardiovascular Exam Cardiovascular Exam: RRR, +S1, +S2 - GI/Abdominal Exam GI & Abdominal Exam: Soft, Normal Bowel Sounds. absent: Tenderness - Extremities Exam Extremities Exam: Normal Inspection - Neurological Exam Neurological Exam: Alert, Awake, Oriented x3 - Psychiatric Exam Psychiatric exam: Normal Affect, Normal Mood - Skin Skin Exam: Dry, Intact, Warm Assessment and Plan - Assessment and Plan (Free Text) Assessment: 53 year old male with a past medical history significant for previous COPD, MINERVA Mycetoma, and tobacco use disorder who presented with cough and was admitted for PNA workup and treatment. Plan: 1. Mycetoma -CT Chest showed decrease in size from previous CT Chest done in 06/2017; See reports for further details -HIV, ANCA panel, Legionella, Mycoplasma, Aspergillosis and Cryptococcus serologies pending -Continue IV Voriconazole -IR consulted for repeat biopsy -IR, ID and Pulmonology consulted, all recommendations appreciated 2. COPD Exacerbation -Continue Duonebs scheduled and as needed -Continue IV Zithromax and Rocephin -ID and Pulmonology consulted, all recommendations appreciated 3. Left Otitis Media -Continue Cipro drops as ordered -ID consulted, all recommendations appreciated 4. History of Tobacco Use Disorder -Continue Nicoderm CQ TD daily -Cessation counseling provided GI Prophylaxis: Pepcid DVT Prophylaxis: SCD's Diet: Regular Patient seen and case discussed with attending, Dr. Michel. Prince Patel, PGY2 <Tevin Michel - Last Filed: 04/30/18 15:49> Objective - Vital Signs/Intake and Output Vital Signs (last 24 hours): Temp Pulse Resp BP Pulse Ox 97.7 F 67 17 89/56 L 97 04/30/18 08:00 04/30/18 08:00 04/30/18 08:00 04/30/18 08:00 04/30/18 08:00 Intake and Output: 04/30/18 04/30/18 06:59 18:59 Output Total 400 Balance -400 - Medications Medications: Current Medications Albuterol/Ipratropium (Duoneb 3 Mg/0.5 Mg (3 Ml) Ud) 3 ml IH [id number] Last Admin: 04/30/18 07:23 Dose: 3 ml Albuterol/Ipratropium (Duoneb 3 Mg/0.5 Mg (3 Ml) Ud) 3 ml IH Q2H PRN PRN Reason: Shortness of Breath Ciprofloxacin/Dexamethasone (Ciprodex Otic) 1 drop BID DEV Last Admin: 04/30/18 09:27 Dose: 1 drop Famotidine (Pepcid) 20 mg PO BID DEV Last Admin: 04/30/18 09:27 Dose: 20 mg Ceftriaxone Sodium (Rocephin 1 Gram Ivpb) 1 gm in 100 mls @ 100 mls/hr IVPB DAILY DEV; Protocol Last Admin: 04/30/18 09:28 Dose: 100 mls/hr Azithromycin (Zithromax 500mg In Ns) 500 mg in 250 mls @ 167 mls/hr IVPB DAILY DEV; Protocol Last Admin: 04/30/18 09:28 Dose: 167 mls/hr Nicotine (Nicoderm Cq) 1 patch TD DAILY DEV Last Admin: 04/30/18 09:27 Dose: 1 patch - Labs Labs: 04/30/18 07:45 04/30/18 07:45 PT 11.8 SECONDS (9.4-12.5) 04/29/18 07:30 INR 1.03 04/29/18 07:30 APTT 29.9 Seconds (25.1-36.5) 04/29/18 07:30 Attending/Attestation - Attestation I have personally seen and examined this patient.: Yes I have fully participated in the care of the patient.: Yes I have reviewed all pertinent clinical information, including history, physical exam and plan: Yes Notes (Text): 04/30/18 15:11 Attending note; Patient seen and examined with resident. Patient is alert and awake. Complaining of cough no significant sputum production. Denies any fevers, chills. Denies any hematemesis or hemoptysis. Tolerating diet well. Ambulating fine. Patient is a 51 year old homeless male with history of tobacco use and COPD who got admitted for evaluation of cough and shortness of breath. Patient with a history of left-sided lung nodule which was biopsied 1 year ago showed septated fungal hyphae. Patient was treated with micamine and discharged home with voriconazole. Patient did not follow-up with PMD or pulmonary. Did not complete treatment. Previous AFB was negative. Fungal culture was negative. previous Quantiferon neg. HIV negative. smoking; smoking cessation is strongly advised. Patient is not interested in stopping smoking. COPD; started on DuoNeb treatment. Pulmonary evaluation requested. CT chest showed left upper lobe nodule . Started on IV Rocephin and Zithromax .ID evaluation requested. Patient is currently afebrile and nontoxic. Monitor closely. Patient is advised to follow-up and complete greer Paperwork. Upon [place] [facility] [place]
[2018-04-29 15:42] LABS: MYCOPLASMA PNEUMONIAE IGM NEGATIVE (NEGATIVE)
[2018-04-29] MEDS ORDERED: Insulin Reg-LOW-Coverage SC SCH (16:30)
--- NOTE | 2018-04-29 20:59 | CON ---
DATE: 04/29/2018 The patient is seen earlier today in room 578, bed 2. CHIEF COMPLAINT: Weakness and cough and cold times several days. HISTORY OF PRESENT ILLNESS: This is a 53-year-old male, who has been seen in the past, who had a lung mass that was biopsied. Biopsy was negative for malignancy, negative for AFB, negative for fungal disease, and with extensive workup is admitted with productive cough, with pain with radiation to the left side, and there are no fevers, no chills. The cough is productive, yellowish sputum. No headaches or blurred vision. No neck pain or sore throat. No abdominal pain, diarrhea or constipation. PAST MEDICAL HISTORY: Significant for the lung mass, which was biopsied and alcohol use and the cigarette smoking. PAST SURGICAL HISTORY: Noncontributory. ALLERGIES: THE PATIENT IS ALLERGIC TO FISH. SOCIAL HISTORY: He is homeless. MEDICATIONS: He has no medications at home. PHYSICAL EXAMINATION: GENERAL: He is in bed, appearing chronically ill, disheveled, overall in poor condition. VITAL SIGNS: Temperature of 98, pulse of 74, respiratory rate of 18, blood pressure is 120/70. HEENT: Unremarkable. NECK: Supple. LUNGS: Have decreased breath sounds. HEART: Normal S1, S2. ABDOMEN: Soft, nontender. LABORATORY EXAMINATION: Reveals a white count of 3.8, hemoglobin of 13, platelets of 215 and 48% lymphocytosis. Coagulation is normal. Chemistries are noted and essentially unremarkable. BNP is 165 and the LDH is 385 and creatinine is normal. Urinalysis reveals to be unremarkable with a trace of protein and serology is negative for influenza in the past. The patient has had beta 13 glucan, which is positive at 117 which is considered positive and it is greater than 60, so it is considered positive. He has then had a TB QuantiFERON, which was negative; Aspergillus antigen, which was negative. Aspergillus flavus antibodies were also negative. Aspergillus fumigatus antiplatelet body is also negative. The patient had an HIV, which was negative and toxicology is reviewed. Urinalysis reveals a trace protein. Chemistries have been reviewed, and Microbiology. The patient has then had the CAT scan guided biopsy and cultures, which were negative for fungus negative for AFB and the blood cultures have all been negative. He did have one bottle with coag-negative staph, which was reported to be A probable contamination and that was in June 2016. The patient also had imaging in the past. The patient had a CAT scan of the chest and a lung biopsy and CAT scan of the maxillofacial sinuses, which showed a mandibular fracture, incidental acute findings. The patient also had the review of the CT scan from the previous admission, reveals the patient to have, read by Dr. Brandon Lovelace, alveolar infiltrate with some upper and lower lobe infiltrate, aspergilloma is not definitely excluded, extensive biapical bullous changes. ASSESSMENT AND PLAN: A 53-year-old male with significant alcohol and tobacco use, who is admitted now with pulmonary symptoms, but no fevers, no tachycardia. No dyspnea, normal white count of 5000, and mildly elevated glucose, and had a CAT scan of the chest, results are pending. Had a chest x-ray, which reveals left upper lobe mass. #1 is aspergilloma versus the left upper lobe mass, although the pathology is reported to be negative for malignancy, but may need a repeat biopsy. Would recommend Dr. Wilfrid Guzmán to review the new CAT scan and compared the CAT scans and consider repeating a biopsy. The patient is a long-time smoker, will recommend a Pulmonary evaluation, and at this point, no evidence of infectious pathology. Cultures have been sent again. I doubt Legionella and Mycoplasma, I doubt bacterial pneumonia; currently on azithromycin and ceftriaxone. We will also order Adam's workup and a Goodpasture's workup in this patient. Pending input from Pulmonary and regarding any changes on CAT scan and possibility of another biopsy to rule out underlying malignancy in a patient who is homeless, long time smoker and concerned about underlying malignancy. Chino Gray MD
[2018-04-30] MEDS: Albuterol-Ipratrop 3 mg / 0.5 (3 ml) UD IH SCH ×4 (01:24→21:16)
[2018-04-30 08:08] LABS: BASO # 0.03 K/mm3 (0.0-2.0); BASO % 0.6 % (0.0-3.0); EOS # 0.1 (0.0-0.7); GRAN # 1.72 (1.4-6.5); GRAN % 33.8 % (50.0-68.0); LYMPH # 2.9 (1.2-3.4); LYMPH % 56.1 % (22.0-35.0); MEAN CELL VOLUME 96.3 fl (80.0-105.0); MEAN CORPUSCULAR HEMOGLOBIN 32.4 pg (25.0-35.0); MEAN CORPUSCULAR HGB CONC 33.7 g/dl (31.0-37.0); MONO # 0.4 (0.1-0.6); MONO % 7.5 % (1.0-6.0); RBC 4.01 10^6/uL (3.5-6.1); RED CELL DISTRIBUTION WIDTH 16.5 % (11.5-14.5); WHITE BLOOD COUNT 5.1 10^3/uL (4.5-11.0)
[2018-04-30 08:16] LABS: ALB/GLOB RATIO 1.2 (1.1-1.8); ALBUMIN 3.8 g/dL (3.0-4.8); ALT/SGPT 22 U/L (7-56); AST/SGOT 20 U/L (17-59); BLOOD UREA NITROGEN 15 mg/dL (7-21); GFR NON-AFRICAN AMERICAN > 60
[2018-04-30] MEDS: Ciprofloxacin/Dexamethasone OTIC SUSP AS SCH ×2 (09:27→17:24)
[2018-04-30] MEDS: cefTRIAXone 1 gm 1 GM/100 ML BAG IVPB SCH (09:28)
[2018-04-30] MEDS: Azithromycin 500MG/NS 250ml 500 MG/250 ML BAG IVPB SCH (09:28)
--- NOTE | 2018-04-30 12:59 | CP.PCM.PN ---
<Prince Patel - Last Filed: 04/30/18 12:55> Subjective - Date & Time of Evaluation Date of Evaluation: 04/30/18 Time of Evaluation: 12:55 - Subjective Subjective: Internal Medicine Progress Note Patient seen and assessed at bedside with family friend present at bedside. No acute events overnight. Patient reports that he has appointments this week regarding his SSI and housing situation and is currently trying to make arrang ements to reschedule these. Patient currently denies any complaints, however, and 12 point ROS is unremarkable at this time. Objective - Vital Signs/Intake and Output Vital Signs (last 24 hours): Temp Pulse Resp BP Pulse Ox 97.7 F 67 17 89/56 L 97 04/30/18 08:00 04/30/18 08:00 04/30/18 08:00 04/30/18 08:00 04/30/18 08:00 Intake and Output: 04/30/18 04/30/18 06:59 18:59 Output Total 400 Balance -400 - Medications Medications: Current Medications Albuterol/Ipratropium (Duoneb 3 Mg/0.5 Mg (3 Ml) Ud) 3 ml IH [id number] DEV Last Admin: 04/30/18 07:23 Dose: 3 ml Albuterol/Ipratropium (Duoneb 3 Mg/0.5 Mg (3 Ml) Ud) 3 ml IH Q2H PRN PRN Reason: Shortness of Breath Ciprofloxacin/Dexamethasone (Ciprodex Otic) 1 drop BID DEV Last Admin: 04/30/18 09:27 Dose: 1 drop Famotidine (Pepcid) 20 mg PO BID DEV Last Admin: 04/30/18 09:27 Dose: 20 mg Ceftriaxone Sodium (Rocephin 1 Gram Ivpb) 1 gm in 100 mls @ 100 mls/hr IVPB DAILY DEV; Protocol Last Admin: 04/30/18 09:28 Dose: 100 mls/hr Azithromycin (Zithromax 500mg In Ns) 500 mg in 250 mls @ 167 mls/hr IVPB DAILY DEV; Protocol Last Admin: 04/30/18 09:28 Dose: 167 mls/hr Nicotine (Nicoderm Cq) 1 patch TD DAILY DEV Last Admin: 04/30/18 09:27 Dose: 1 patch - Labs Labs: 04/30/18 07:45 04/30/18 07:45 PT 11.8 SECONDS (9.4-12.5) 04/29/18 07:30 INR 1.03 04/29/18 07:30 APTT 29.9 Seconds (25.1-36.5) 04/29/18 07:30 - Additional Findings Additional findings: - Constitutional Appears: Non-toxic, No Acute Distress - Head Exam Head Exam: ATRAUMATIC, NORMOCEPHALIC - Eye Exam Eye Exam: EOMI, Normal appearance, PERRL Pupil Exam: NORMAL ACCOMODATION - ENT Exam ENT Exam: Normal External Ear Exam, Normal Oropharynx. absent: TM's Normal Bilaterally Additional comments: Cerumen bilaterally and L TM with mild erythema - Neck Exam Neck Exam: Full ROM, Normal Inspection. absent: Lymphadenopathy, Meningismus, Tenderness, Thyromegaly - Respiratory Exam Respiratory Exam: Prolonged Expiratory Phase, Wheezes (Interval improvement noted), NORMAL BREATHING PATTERN. absent: Accessory Muscle Use, Chest Wall Tenderness, Decreased Breath Sounds, Clear to Ausculation Bilateral, Rales, Rhonchi, Respiratory Distress, Stridor - Cardiovascular Exam Cardiovascular Exam: RRR, +S1, +S2 - GI/Abdominal Exam GI & Abdominal Exam: Soft, Normal Bowel Sounds. absent: Tenderness - Extremities Exam Extremities Exam: Normal Inspection - Neurological Exam Neurological Exam: Alert, Awake, Oriented x3 - Psychiatric Exam Psychiatric exam: Normal Affect, Normal Mood - Skin Skin Exam: Dry, Intact, Warm Assessment and Plan - Assessment and Plan (Free Text) Assessment: 53 year old male with a past medical history significant for previous COPD, MINERVA Mycetoma, and tobacco use disorder who presented with cough. Plan: 1. Mycetoma -CT Chest showed decrease in size from previous CT Chest done in 06/2017; See reports for further details -Legionella and Mycoplasma serologies negative -TB, HIV, ANCA panel, Aspergillosis and Cryptococcus serologies pending -Discontinue IV Voriconazole, per ID -IR consulted for repeat biopsy -IR, ID and Pulmonology consulted, all recommendations appreciated 2. COPD Exacerbation -Continue Duonebs scheduled and as needed -Continue IV Zithromax and Rocephin (Day 2) -ID and Pulmonology consulted, all recommendations appreciated 3. Left Otitis Media -Continue Cipro drops as ordered (Day 2) -ID consulted, all recommendations appreciated 4. History of Tobacco Use Disorder -Continue Nicoderm CQ TD daily -Cessation counseling reinforced GI Prophylaxis: Pepcid DVT Prophylaxis: SCD's Diet: Regular Patient seen and case discussed with attending, Dr. Michel. Prince Patel, PGY2 <Tevin Michel - Last Filed: 04/30/18 15:56> Objective - Vital Signs/Intake and Output Vital Signs (last 24 hours): Temp Pulse Resp BP Pulse Ox 97.7 F 67 17 89/56 L 97 04/30/18 08:00 04/30/18 08:00 04/30/18 08:00 04/30/18 08:00 04/30/18 08:00 Intake and Output: 04/30/18 04/30/18 06:59 18:59 Output Total 400 Balance -400 - Medications Medications: Current Medications Albuterol/Ipratropium (Duoneb 3 Mg/0.5 Mg (3 Ml) Ud) 3 ml IH [id number] [facility] Last Admin: 04/30/18 15:44 Dose: Not Given Albuterol/Ipratropium (Duoneb 3 Mg/0.5 Mg (3 Ml) Ud) 3 ml IH Q2H PRN PRN Reason: Shortness of Breath Ciprofloxacin/Dexamethasone (Ciprodex Otic) 1 drop BID DEV Last Admin: 04/30/18 09:27 Dose: 1 drop Famotidine (Pepcid) 20 mg PO BID DEV Last Admin: 04/30/18 09:27 Dose: 20 mg Ceftriaxone Sodium (Rocephin 1 Gram Ivpb) 1 gm in 100 mls @ 100 mls/hr IVPB DAILY DEV; Protocol Last Admin: 04/30/18 09:28 Dose: 100 mls/hr Azithromycin (Zithromax 500mg In Ns) 500 mg in 250 mls @ 167 mls/hr IVPB DAILY DEV; Protocol Last Admin: 04/30/18 09:28 Dose: 167 mls/hr Nicotine (Nicoderm Cq) 1 patch TD DAILY DEV Last Admin: 04/30/18 09:27 Dose: 1 patch - Labs Labs: 04/30/18 07:45 04/30/18 07:45 PT 11.8 SECONDS (9.4-12.5) 04/29/18 07:30 INR 1.03 04/29/18 07:30 APTT 29.9 Seconds (25.1-36.5) 04/29/18 07:30 Attending/Attestation - Attestation I have personally seen and examined this patient.: Yes I have fully participated in the care of the patient.: Yes I have reviewed all pertinent clinical information, including history, physical exam and plan: Yes Notes (Text): 04/30/18 15:49 Attending note; Patient seen and examined with resident. Patient is alert and awake. Complaining of cough no significant sputum production. Denies any fevers, chills. Tolerating diet well. Ambulating fine. Patient is a 51 year old homeless male with history of . Left upper lobe lung nodue ,tobacco use and COPD who got admitted for evaluation of cough and shortness of breath. Patient with a history of left-sided lung nodule which was biopsied 1 year ago showed septated fungal hyphae. Patient was treated with micamine and discharged home with voriconazole. Patient did not follow-up with PMD or pulmonary. Did not complete treatment. smoking; smoking cessation is strongly advised. Patient is not interested in stopping smoking. COPD; started on DuoNeb treatment. Pulmonary evaluation appreciated. Patient will be referred to outpatient pulmonary clinic for PFTs. CT chest showed left upper lobe nodule . Started on IV Rocephin and Zithromax .ID evaluation appreciated. Patient is currently afebrile and nontoxic. We will follow up with IR for the possible need for biopsy again. Monitor closely. Patient is advised to follow-up and complete greer Paperwork. foundation relations manager and pediatric social worker evaluation requested. Upon discharge patient will be referred to [facility]. 04/30/18 15:55
--- NOTE | 2018-04-30 20:46 | PN ---
DATE: 04/30/2018 SUBJECTIVE: Patient is in bed, no acute distress, nontoxic, comfortable. No fevers. No chills. PHYSICAL EXAMINATION VITAL SIGNS: Temperature is 97, blood pressure is 103/50, respiratory rate 20, heart rate of 55. HEENT: Unremarkable. NECK: Supple. LUNGS: Have decreased breath sounds. HEART: Normal S1 and S2. ABDOMEN: Soft. LABORATORY EXAMINATION: Reveals a white count of 5.1, hemoglobin of 13, platelets of 208. Chemistries reveal a BUN of 15, creatinine of 0.9, and procalcitonin is less than 0.05. Urine for Legionella antigen is negative. Mycoplasma is negative. Influenza is negative. Microbiology reveals the urine culture is negative. Blood cultures are negative. Patient had a CAT scan of the chest and the results are reviewed. 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 Patient did have a biopsy on earlier admission and currently now off of antifungal therapy, on ceftriaxone, azithromycin, and may consider a repeat CT-guided biopsy to rule out underlying malignancy in a patient who is at high risk. Patient's urine for Legionella is negative, influenza is negative, mycoplasma is negative,and case discussed with house staff at length. Pathology from last admission , which was done by Dr. Wilfrid Guzmán, CAT scan-guided biopsy with a lung mass that is 2 cm in a smoker showed that lung parenchymal tissue aggregates of septate-branching fungal hyphae associated with mild chronic inflammation and interstitial fibrosis and elastosis, and special stain of fungus reveals septate fungal organisms correlate with marked biology study and for further classification of fungus. The microbiology did not grow any fungus and it is unclear from the pathology if this is invasive anterior lung tissue or just aggregates of septate-branching fungal hyphae and at this time, no indication for treating with antifungals and aspergilloma versus underlying malignancy. Consider repeat invasive radiology intervention for possible repeat biopsy. Chino Gray MD
[2018-04-30 23:23] VITALS: RESP 18
[2018-05-01] MEDS: Albuterol-Ipratrop 3 mg / 0.5 (3 ml) UD IH SCH ×3 (02:32→13:53)
[2018-05-01 06:45] LABS: BASO # 0.03 K/mm3 (0.0-2.0); BASO % 0.6 % (0.0-3.0); EOS # 0.2 (0.0-0.7); EOS % 4.3 % (1.5-5.0); GRAN # 1.74 (1.4-6.5); GRAN % 37.7 % (50.0-68.0); HEMOGLOBIN 13.2 g/dL (14.0-18.0); LYMPH # 2.2 (1.2-3.4); LYMPH % 47.4 % (22.0-35.0); MEAN CELL VOLUME 96.8 fl (80.0-105.0); MEAN CORPUSCULAR HEMOGLOBIN 32.6 pg (25.0-35.0); MEAN CORPUSCULAR HGB CONC 33.7 g/dl (31.0-37.0); MEAN PLATELET VOLUME 9.2 fl (7.0-11.0); MONO # 0.5 (0.1-0.6); RBC 4.05 10^6/uL (3.5-6.1); RED CELL DISTRIBUTION WIDTH 16.6 % (11.5-14.5); WHITE BLOOD COUNT 4.6 10^3/uL (4.5-11.0)
[2018-05-01 07:11] LABS: ALB/GLOB RATIO 1.2 (1.1-1.8); ALBUMIN 3.9 g/dL (3.0-4.8); ALT/SGPT 16 U/L (7-56); AST/SGOT 22 U/L (17-59); BLOOD UREA NITROGEN 19 mg/dL (7-21); CALCIUM 9.2 mg/dL (8.4-10.5); GFR NON-AFRICAN AMERICAN > 60
[2018-05-01] MEDS: cefTRIAXone 1 gm 1 GM/100 ML BAG IVPB SCH (09:23)
[2018-05-01] MEDS: Ciprofloxacin/Dexamethasone OTIC SUSP AS SCH (09:51)
[2018-05-01] MEDS ORDERED: Pneumococcal 23-Valent Vaccine IM ONE (13:48)
[2018-05-01 14:28] VITALS: BP 104/65; PULSE 67; TEMP 98.8; O2SAT 67
--- NOTE | 2018-05-01 16:57 | CP.PCM.PN ---
Subjective - Date & Time of Evaluation Date of Evaluation: 05/01/18 Time of Evaluation: 11:30 - Subjective Subjective: No fevers, not in distress, cough is dry. Objective - Vital Signs/Intake and Output Vital Signs (last 24 hours): Temp Pulse Resp BP Pulse Ox 98.3 F 56 L 18 96/43 L 97 04/30/18 23:22 04/30/18 23:22 04/30/18 23:22 04/30/18 23:22 04/30/18 23:22 Intake and Output: 05/01/18 05/01/18 06:59 18:59 Intake Total 620 Balance 620 - Medications Medications: Current Medications Albuterol/Ipratropium (Duoneb 3 Mg/0.5 Mg (3 Ml) Ud) 3 ml IH [id number] [facility] Last Admin: 05/01/18 07:21 Dose: 3 ml Albuterol/Ipratropium (Duoneb 3 Mg/0.5 Mg (3 Ml) Ud) 3 ml IH Q2H PRN PRN Reason: Shortness of Breath Ciprofloxacin/Dexamethasone (Ciprodex Otic) 1 drop BID DEV Last Admin: 04/30/18 17:24 Dose: 1 drop Famotidine (Pepcid) 20 mg PO BID DEV Last Admin: 04/30/18 17:24 Dose: 20 mg Ceftriaxone Sodium (Rocephin 1 Gram Ivpb) 1 gm in 100 mls @ 100 mls/hr IVPB DAILY DEV; Protocol Last Admin: 04/30/18 09:28 Dose: 100 mls/hr Azithromycin (Zithromax 500mg In Ns) 500 mg in 250 mls @ 167 mls/hr IVPB DAILY DEV; Protocol Last Admin: 04/30/18 09:28 Dose: 167 mls/hr Nicotine (Nicoderm Cq) 1 patch TD DAILY [facility] Last Admin: 04/30/18 10:03 Dose: Not Given - Labs Labs: 05/01/18 06:00 05/01/18 06:00 PT 11.8 SECONDS (9.4-12.5) 04/29/18 07:30 INR 1.03 04/29/18 07:30 APTT 29.9 Seconds (25.1-36.5) 04/29/18 07:30 - Constitutional Appears: No Acute Distress, Chronically Ill - Head Exam Head Exam: NORMAL INSPECTION - Respiratory Exam Respiratory Exam: Decreased Breath Sounds - Cardiovascular Exam Cardiovascular Exam: +S1, +S2 - GI/Abdominal Exam GI & Abdominal Exam: Soft. absent: Tenderness Assessment and Plan - Assessment and Plan (Free Text) Plan: Assessment chronic left upper lobe cavitary lesion, R/O Aspergilloma in this homeless patient S/P CT-guided biopsy in 2017; R/O other etiologies such as malignancysignificant smoking history Plan patient on Rocephin and Zithromax; would suggest CT-guided biopsy and awaiting Dr. Wilfrid Guzmán's evaluation to see if this is feasible
--- NOTE | 2018-05-01 19:46 | CP.PCM.DIS ---
Provider - Provider Date of Admission: 04/28/18 20:48 Attending physician: Tevin Michel MD Primary care physician: NO FAMILY PROVIDER Consults: 04/28/18 22:42 Infectious Disease Consult Routine Comment: Consulting Provider: Chino Gray Consulting Physician: Chino Gray Reason for Consult: pt with h/o fungal infection in lung, w/ cough and L upper lobe inf 04/29/18 08:47 Physician Consult Routine Comment: Consulting Provider: Kavon Anthony Consulting Physician: Kavon Anthony Reason for Consult: Left Upper Lobe fungal mass 04/29/18 11:42 Case Management Referral Routine Comment: Physician Instructions: Reason For Exam: Reason for Referral: Discharge Planning 04/29/18 12:43 Physician Consult Routine Comment: Consulting Provider: Wilfrid Guzmán Consulting Physician: Wilfrid Guzmán Reason for Consult: Left upper lobe fungal mass Additional Comments: Previously seen this patient for CT guided biopsy; Nothing grew in cultures; Patient with new symptoms Time Spent in preparation of Discharge (in minutes): 45 Diagnosis - Discharge Diagnosis (1) Cough Status: Acute (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 Hospital Course - Lab Results Lab Results: Micro Results 04/28/18 17:07 Blood Blood Culture - Preliminary NO GROWTH AFTER 3 DAYS 04/28/18 16:22 Blood Blood Culture - Preliminary NO GROWTH AFTER 3 DAYS 04/28/18 18:22 Urine Urine Culture - Final No Growth (<1,000 CFU/ML) Most Recent Lab Values WBC 4.6 10^3/uL (4.5-11.0) 05/01/18 06:00 RBC 4.05 10^6/uL (3.5-6.1) 05/01/18 06:00 Hgb 13.2 g/dL (14.0-18.0) L 05/01/18 06:00 Hct 39.2 % (42.0-52.0) L 05/01/18 06:00 MCV 96.8 fl (80.0-105.0) 05/01/18 06:00 MCH 32.6 pg (25.0-35.0) 05/01/18 06:00 MCHC 33.7 g/dl (31.0-37.0) 05/01/18 06:00 RDW 16.6 % (11.5-14.5) H 05/01/18 06:00 Plt Count 213 10^3/uL (120.0-450.0) 05/01/18 06:00 MPV 9.2 fl (7.0-11.0) 05/01/18 06:00 Gran % 37.7 % (50.0-68.0) L 05/01/18 06:00 Lymph % (Auto) 47.4 % (22.0-35.0) H 05/01/18 06:00 Kaufman % (Auto) 10.0 % (1.0-6.0) H 05/01/18 06:00 Eos % (Auto) 4.3 % (1.5-5.0) 05/01/18 06:00 Baso % (Auto) 0.6 % (0.0-3.0) 05/01/18 06:00 Gran # 1.74 (1.4-6.5) 05/01/18 06:00 Lymph # (Auto) 2.2 (1.2-3.4) 05/01/18 06:00 Kaufman # (Auto) 0.5 (0.1-0.6) 05/01/18 06:00 Eos # (Auto) 0.2 (0.0-0.7) 05/01/18 06:00 Baso # (Auto) 0.03 K/mm3 (0.0-2.0) 05/01/18 06:00 ESR 15 mm/hr (0.00-15.0) 04/29/18 09:45 PT 11.8 SECONDS (9.4-12.5) 04/29/18 07:30 INR 1.03 04/29/18 07:30 APTT 29.9 Seconds (25.1-36.5) 04/29/18 07:30 pO2 30 mm/Hg (30-55) 04/28/18 16:22 VBG pH 7.33 (7.32-7.43) 04/28/18 16:22 VBG pCO2 58.0 (40-60) 04/28/18 16:22 VBG HCO3 30.6 mmol/l (21-28) H 04/28/18 16:22 VBG Total CO2 32.4 mmol.L (22-28) H 04/28/18 16:22 VBG O2 Sat (Calc) 61.5 % (40-65) 04/28/18 16:22 VBG Base Excess 3.2 mmol/L (0.0-2.0) H 04/28/18 16:22 VBG Potassium 4.4 mmol/L (3.6-5.2) 04/28/18 16:22 Sodium 140.0 mmol/L (132-148) 04/28/18 16:22 Chloride 103.0 mmol/L (98-107) 04/28/18 16:22 Glucose 98 mg/dl (75-110) 04/28/18 16:22 Lactate 0.8 mmol/L (0.7-2.1) 04/28/18 16:22 FiO2 21.0 % 04/28/18 16:22 Sodium 140 mmol/L (132-148) 05/01/18 06:00 Potassium 4.3 mmol/L (3.6-5.0) 05/01/18 06:00 Chloride 105 mmol/L (98-107) 05/01/18 06:00 Carbon Dioxide 29 mmol/L (21-33) 05/01/18 06:00 Anion Gap 10 (10-20) 05/01/18 06:00 BUN 19 mg/dL (7-21) 05/01/18 06:00 Creatinine 1.0 mg/dl (0.8-1.5) 05/01/18 06:00 Est GFR ( Amer) > 60 05/01/18 06:00 Est GFR (Non-Af Amer) > 60 05/01/18 06:00 POC Glucose (mg/dL) 89 mg/dL (65-110) 04/29/18 11:52 Random Glucose 99 mg/dL (70-110) 05/01/18 06:00 Calcium 9.2 mg/dL (8.4-10.5) 05/01/18 06:00 Iron 93 ug/dL (45-180) 04/29/18 07:30 TIBC 295 ug/dL (261-462) 04/29/18 07:30 % Saturation 32 % (20-55) 04/29/18 07:30 Ferritin 116.0 ng/mL 04/29/18 07:30 Total Bilirubin 0.5 mg/dL (0.2-1.3) 05/01/18 06:00 AST 22 U/L (17-59) 05/01/18 06:00 ALT 16 U/L (7-56) 05/01/18 06:00 Alkaline Phosphatase 57 U/L (38-126) 05/01/18 06:00 Lactate Dehydrogenase 318 U/L (333-699) L 04/29/18 07:30 Total Creatine Kinase 229 U/L (35-230) 04/28/18 16:22 Troponin I < 0.01 ng/mL D 04/28/18 16:22 C-Reactive Protein < 5.00 mg/L (0.0-9.9) 04/29/18 09:45 NT-Pro-B Natriuret Pep 165 pg/mL (0-450) 04/28/18 16:22 Total Protein 7.2 g/dL (5.8-8.3) 05/01/18 06:00 Albumin 3.9 g/dL (3.0-4.8) 05/01/18 06:00 Globulin 3.3 gm/dL 05/01/18 06:00 Albumin/Globulin Ratio 1.2 (1.1-1.8) 05/01/18 06:00 Procalcitonin < 0.05 NG/ML (0.19-0.49) L 04/29/18 07:30 Venous Blood Potassium 4.4 mmol/L (3.6-5.2) 04/28/18 16:22 Urine Color Yellow (YELLOW) 04/28/18 18:22 Urine Appearance Clear (CLEAR) 04/28/18 18:22 Urine pH 7.0 (4.7-8.0) 04/28/18 18:22 Ur Specific [place] 1.015 (1.005-1.035) 04/28/18 18:22 Urine Protein Trace mg/dL (<30 mg/dL) H 04/28/18 18:22 Urine Glucose (UA) Negative mg/dL (NEGATIVE) 04/28/18 18: Urine Ketones Negative mg/dL (NEGATIVE) 04/28/18 18:22 Urine Blood Negative (NEGATIVE) 04/28/18 18:22 Urine Nitrate Negative (NEGATIVE) 04/28/18 18: Urine Bilirubin Negative (NEGATIVE) 04/28/18 18:22 Urine Urobilinogen 0.2 E.U./dL (<1 E.U./dL) 04/28/18 18:22 Ur Leukocyte Esterase Negative Adarsh/uL (NEGATIVE) 04/28/18 18:22 Urine RBC 0 - 2 /hpf (0-2) 04/28/18 18:22 Urine WBC Negative /hpf (0-6) 04/28/18 18:22 Ur Epithelial Cells 0 - 2 /hpf (0-5) 04/28/18 18:22 Urine Bacteria Small (NEG) 04/28/18 18:22 Urine Other Mucus 04/28/18 18:22 Cryptococcus Ag Screen Not detected (Not Detected) 04/29/18 07:30 HIV-1 Antibody TEST NOT PERFORMED 04/29/18 07:30 HIV-2 Antibody TEST NOT PERFORMED 04/29/18 07:30 HIV 1&2 Ag/Ab, 4th Gen Nonreactive (Nonreactive) 04/29/18 07:30 Influenza Typ A,B (EIA) Negative for flu a/b (NEGATIVE) 04/28/18 16:22 Ur L.pneumophila Ag Negative (NEGATIVE) 04/29/18 21:42 Mycoplasma pneumon IgM Negative (NEGATIVE) 04/29/18 07:30 - Hospital Course Hospital Course: Upon Admission: Pt is a 53M with H fungal lung infection that presents to ED with cough x 1.5 months. Pt reports similar cough in the past, when he was admitted in 07/16 for fungal lung infection. Pt was d/c at that time with oral antifungals but reports never filling rx. Pt reports green sputum associated with cough, but denies blood in sputum. Pt also reports pain in L ear for the past few days. He denies fever, chills, night sweats, weight loss, shortness of breath, chest pain, abdominal pain, nausea, vomiting, diarrhea, constipation, dysuria, weakness, dizziness. Pt is homeless and lives [place] [address]. He reports exposure to sick contacts when visiting [facility] for meals. CT chest done in the ED showed: MINERVA mass 3.3x 2.3cm. severe scattered upper lobe predominant paraseptal emphysema. Hospital Course: Pt was being worked up for prior fungal infection. ID was consulted and by reviewing prior CT scans and prior lung biopsy, they wanted to test for fungal antigens. The pt tested negative for the fungal antigens and the CT obtained from this admission showed improvement from prior imaging. Microbiology grew no fungal growth and eventually the anti-biotics were scaled back and then discontinued. Discharge Exam - Head Exam Head Exam: ATRAUMATIC, NORMAL INSPECTION, NORMOCEPHALIC - Eye Exam Eye Exam: EOMI, Normal appearance, PERRL - Respiratory Exam Respiratory Exam: Clear to PA & Lateral, NORMAL BREATHING PATTERN. absent: Accessory Muscle Use, Chest Wall Tenderness, Rales, Rhonchi, Wheezes, Respiratory Distress, Stridor - Cardiovascular Exam Cardiovascular Exam: RRR, +S1, +S2. absent: Gallop, Rubs - GI/Abdominal Exam GI & Abdominal Exam: Normal Bowel Sounds, Soft. absent: Tenderness - Extremities Exam Extremities exam: normal capillary refill, normal inspection, pedal pulses present - Back Exam Back exam: NORMAL INSPECTION. absent: CVA tenderness (L), CVA tenderness (R) - Neurological Exam Neurological exam: Alert, Oriented x3 - Psychiatric Exam Psychiatric exam: Normal Affect, Normal Mood - Skin Skin Exam: Dry, Normal Color, Warm Discharge Plan - Discharge Medications Prescriptions: Albuterol HFA [Ventolin HFA 90 mcg/actuation (8 g)] 1 puff IH Q6H PRN #1 inhaler PRN Reason: Shortness Of Breath Mometasone/Formoterol [Dulera 100 Mcg/5 Mcg Inhaler] 8.8 gm IH BID #1 hfa.aer.ad - Follow Up Plan Condition: FAIR Disposition: HOME/ ROUTINE Instructions: Heart Healthy Diet, Quitting Smoking, Alcohol Abuse and Alcoholism (DC), Influenza Virus Vaccine (Inactivated), Pneumococcal Polysaccharide Vaccine (23-Valent) Additional Instructions: - Please follow up with the [facility] for your appointment on May 26 @ 2:30pm - Please complete [facility] paperwork prior to your appointment - You have been given a prescription for 1. Ventolin inhaler 1 puff every 6 hours as needed for shortness of breath 2. Dulera inhaler 1 puff every 12 hours daily - If your symptoms worsen, please go to the nearest emergency department. Referrals: [facility] [Outside] FAMILY PROVIDER,NO [Primary Care Provider] -
== END 2018-05-01 15:43 | disposition home or self-care (01) | DRG 139 ==
LOC: ED 15:45 → ERH 20:48 → 5RSO 22:41
PROVIDERS: ADMIT Internal Medicine; ATTEND Internal Medicine
PROC: 3E0F7GC Introduction of Other Therapeutic Substance into Respiratory Tract, Via Natural or Artificial Opening (ICD-10-PCS; principal; 2018-04-29)
PROC: 3E0234Z Introduction of Serum, Toxoid and Vaccine into Muscle, Percutaneous Approach (ICD-10-PCS; 2018-05-01)
DX: J16.8 Pneumonia due to other specified infectious organisms (principal); B47.9 Mycetoma, unspecified; J44.1 Chronic obstructive pulmonary disease with (acute) exacerbation; H66.92 Otitis media, unspecified, left ear; F17.210 Nicotine dependence, cigarettes, uncomplicated; Z59.0 Homelessness; Z23 Encounter for immunization